=== PATIENT | female | born 1960 | race Caucasian/White ===

== ENCOUNTER 2020-05-24 03:17 | Inpatient (IN) | payer BC ==
[2020-05-24] MEDS ORDERED: diphenhydrAMINE 50 MG/ML SDV IVPUSH PRN (03:40)
[2020-05-24] MEDS: HYDROmorphone 1 MG/ML Syringe IVPUSH PRN ×4 (04:36→21:40)
[2020-05-24] MEDS: Ondansetron 4 MG/2 ML SDV IVPUSH PRN ×2 (04:37→08:05)
[2020-05-24] MEDS: Piperacillin/Tazobactam 3.375 GM in Sodium Chloride 0.9% 50 ML IV SCH ×3 (06:36→17:34)
[2020-05-24] MEDS ORDERED: Sugammadex Sodium 200 MG/2 ML VIAL ONE (08:39)
--- NOTE | 2020-05-24 09:12 | PCM.HP.2 ---
H&P History of Present Illness - General Date of Service: 05/24/20 Admit Problem/Dx: Admission Diagnosis/Problem Admission Diagnosis/Problem Appendicitis Source of Information: Patient History Limitations: Reports: No Limitations - History of Present Illness Initial Comments - Free Text/Narative: Patient is a 59 year old female who presents with appendicitis. She developed m alaise and generalized abdominal pain 2 days ago. She drove from [place] up to [place] and by the time she arrived here the pain was located in her RLQ. She has not had a BM for 2 days. She has never had a colonoscopy. She denies any family history of autoimmune disease or IBD. She presented to an OSH. She was found to have a elevated WBC at 13K with a left shift. She had a CT scan that showed thickened small bowel in the LLQ concerning for enteritis or an ileus as well as a 1.5 cm dilated inflamed appendix consistent with appendicitis. She was given IVF and IV zosyn then transfered here. - Related Data Allergies/Adverse Reactions: Allergies Allergy/AdvReac Type Severity Reaction Status Date / Time No Known Allergies Allergy Verified 05/24/20 04:25 Home Medications: Home Meds Lisinopril/Hydrochlorothiazide [Lisinopril-Hctz 20-12.5 mg Tab] 1 each PO 05/24/20 [History] Past Medical History Cardiovascular History: Reports: Hypertension Respiratory History: Reports: Other (See Below) (Long time smoker (40+ years)) QI SPECIALIST History: Reports: - Infectious Disease History Infectious Disease History: Reports: Chicken Pox, Measles - Past Surgical History Cardiovascular Surgical History: Reports: None GI Surgical History: Reports: None Female Surgical History: Reports: Section Social & Family History - Family History Family Medical History: Noncontributory - Tobacco Use Smoking Status *Q: Current Every Day Smoker Years of Tobacco use: 40 Packs/Tins Daily: 0 Second Hand Smoke Exposure: No - Caffeine Use Caffeine Use: Reports: Energy Drinks, Tea - Alcohol Use Days Per Week of Alcohol Use: 7 Number of Drinks Per Day: 1 Total Drinks Per Week: 7 Date of Last Drink: 05/22/20 - Recreational Drug Use Recreational Drug Use: No H&P Review of Systems - Review of Systems: Review Of Systems: Comprehensive ROS is negative, except as noted in HPI. Exam - Exam Exam: See Below - Vital Signs Weight: 62.596 kg - Exam General: Alert, Oriented, Cooperative HEENT: Conjunctiva Clear, Mucosa Moist & [place], Posterior Pharynx Clear Lungs: Clear to Auscultation, Normal Respiratory Effort, Decreased Breath Sounds (to bases bilaterally ) Cardiovascular: Regular Rate, Regular Rhythm GI/Abdominal Exam: Soft, No Distention, Guarding (RLQ), Rebound (RLQ), Tender (RLQ) Extremities: Normal Inspection Sepsis Event Note - Evaluation Sepsis Screening Result: Sepsis Risk - Problem List (1) Appendicitis SNOMED Code(s): 25504104 ICD Code: K37 - UNSPECIFIED APPENDICITIS Status: Acute Current Visit: Yes Problem List Initiated/Reviewed/Updated: Yes Orders Last 24hrs: Active Orders 24 hr Category Date Time Status Admission Status [Patient Status] [ADT] Routine ADT 05/24/20 03:25 Active Activity as Tolerated [RC] .Routine Care 05/24/20 03:44 Active Communication Order [RC] STAT Care 05/24/20 03:44 Active Vital Signs [RC] Q4H Care 05/24/20 03:44 Active Nothing Per Oral Diet [DIET] Diet 05/24/20 Breakfast Active CORONAVIRUS COVID-19 PCR PHL Routine Lab 05/24/20 08:30 Ordered HYDROmorphone [Dilaudid] Med 05/24/20 03:38 Active 0.5 mg IVPUSH Q1H PRN Lactated Ringers [Ringers, Lactated] 1,000 ml Med 05/24/20 03:45 Active IV ASDIRECTED Ondansetron [Zofran] Med 05/24/20 03:40 Active 4 mg IVPUSH Q4H PRN Piperacillin/Tazobactam [Piperacil-Tazobact] 3.375 gm Med 05/24/20 06:00 Active Sodium Chloride 0.9% [Normal Saline] 50 ml IV Q6H diphenhydrAMINE [Benadryl] Med 05/24/20 03:40 Active 50 mg IVPUSH Q4H PRN Code Status [Resuscitation Status] Routine Resus Stat 05/24/20 03:36 Ordered Medication Orders Diphenhydramine HCl (Benadryl) 50 mg IVPUSH Q4H PRN PRN Reason: Itching Hydromorphone HCl (Dilaudid) 0.5 mg IVPUSH Q1H PRN PRN Reason: Pain Last Admin: 05/24/20 08:04 Dose: 0.5 mg Documented by: Admin: 05/24/20 04:36 Dose: 0.5 mg Documented by: PAULO Lactated Ringer's (Ringers, Lactated) 1,000 mls @ 125 mls/hr IV ASDIRECTED DEA Piperacillin Sod/Tazobactam (Sod 3.375 gm/ Sodium Chloride) 50 mls @ 100 mls/hr IV Q6H DEA Stop: 05/26/20 06:00 Last Admin: 05/24/20 06:36 Dose: 100 mls/hr Documented by: PAULO Ondansetron HCl (Zofran) 4 mg IVPUSH Q4H PRN PRN Reason: Nausea Last Admin: 05/24/20 08:05 Dose: 4 mg Documented by: Admin: 05/24/20 04:37 Dose: 4 mg Documented by: PAULO Assessment/Plan Comment:: I was unable to review her CT findings since the images were not send with her and we are unable at this time to send or receive images due to technical issues. Her physical exam is consistent with appendicitis. She does not appear distended and has not been vomiting so at this time there is no evidence of an ileus or SBO. However the inflammation from her acute appendicitis could be causing this to begin. We discussed the pathophysiology of acute appendicitis. I explained the need for an appendectomy. I will attempt this laparoscopically but should I be unable to perform it safely I will convert to open. We discussed the risks including bleeding, infection or damage to surrounding structures. She verbalized understanding and wishes to proceed.
--- NOTE | 2020-05-24 09:13 | PCM.PREANE ---
Preanesthetic Assessment - Anesthesia/Transfusion/Family Hx Family History of Anesthesia Reaction: No - Review of Systems General: No Symptoms Pulmonary: No Symptoms Cardiovascular: No Symptoms Gastrointestinal: Abdominal Pain Neurological: No Symptoms Other: Reports: None - Physical Assessment NPO Status Date: 05/23/20 Height: 5 ft 5 in Weight: 62.596 kg ASA Class: 2 Mental Status: Alert & Oriented x3 Airway Class: Mallampati = 1 Dentition: Reports: Normal Dentition ROM/Head Extension: Full Lungs: Clear to Auscultation, Normal Respiratory Effort Cardiovascular: Regular Rate, Regular Rhythm - Allergies Allergies/Adverse Reactions: Allergies Allergy/AdvReac Type Severity Reaction Status Date / Time No Known Allergies Allergy Verified 05/24/20 04:25 - Blood Blood Available: No - Anesthesia Plan Pre-Op Medication Ordered: None - Acknowledgements Anesthesia Type Planned: General Anesthesia Pt an Appropriate Candidate for the Planned Anesthesia: Yes Alternatives and Risks of Anesthesia Discussed w Pt/Guardian: Yes Pt/Guardian Understands and Agrees with Anesthesia Plan: Yes Additional Comments: PMH: htn, on hctz PLAN: get PreAnesthesia Questionnaire Cardiovascular History: Reports: Hypertension [employer] History: Reports: - Infectious Disease History Infectious Disease History: Reports: Chicken Pox, Measles - Past Surgical History Cardiovascular Surgical History: Reports: None GI Surgical History: Reports: None - SUBSTANCE USE Smoking Status *Q: Current Every Day Smoker Tobacco Use Within Last Twelve Months: Cigarettes Second Hand Smoke Exposure: No Days Per Week of Alcohol Use: 7 Number of Drinks Per Day: 1 Total Drinks Per Week: 7 Date of Last Drink: 05/22/20 Recreational Drug Use History: No - CURRENT (IN HOUSE) MEDS Current Meds: Current Medications Diphenhydramine HCl (Benadryl) 50 mg IVPUSH Q4H PRN PRN Reason: Itching Hydromorphone HCl (Dilaudid) 0.5 mg IVPUSH Q1H PRN PRN Reason: Pain Last Admin: 05/24/20 08:04 Dose: 0.5 mg Documented by: Lactated Ringer's (Ringers, Lactated) 1,000 mls @ 125 mls/hr IV ASDIRECTED DEA Piperacillin Sod/Tazobactam (Sod 3.375 gm/ Sodium Chloride) 50 mls @ 100 mls/hr IV Q6H DEA Stop: 05/26/20 06:00 Last Admin: 05/24/20 06:36 Dose: 100 mls/hr Documented by: Ondansetron HCl (Zofran) 4 mg IVPUSH Q4H PRN PRN Reason: Nausea Last Admin: 05/24/20 08:05 Dose: 4 mg Documented by: Discontinued Medications Sugammadex Sodium ([place]rid[place]) Confirm Administered Dose 200 mg .ROUTE .[facility] Stop: 05/24/20 08:40
[2020-05-24] MEDS ORDERED: ceFAZolin 1 GM Vial ONE ×2 (11:25→16:14)
[2020-05-24] MEDS ORDERED: Propofol 200 MG/20 ML SDV ONE (11:27)
[2020-05-24] MEDS ORDERED: HYDROmorphone 2 MG/ML Syringe ONE (11:27)
[2020-05-24] MEDS ORDERED: fentaNYL 100 MCG/2 ML SDV ONE ×2 (11:27→15:47)
[2020-05-24] MEDS ORDERED: Midazolam 1 MG/ML 2 ML SDV ONE (11:27)
[2020-05-24] MEDS ORDERED: Rocuronium Bromide 50 MG/5 ML Syringe ONE ×2 (11:27→16:35)
[2020-05-24] MEDS ORDERED: Ondansetron 4 MG/2 ML SDV ONE (11:27)
[2020-05-24] MEDS ORDERED: Lidocaine 2% 5 ML SDV ONE (11:29)
[2020-05-24] MEDS ORDERED: Sodium Chloride 0.9% 20 ML ONE (11:30)
[2020-05-24] MEDS: Lactated Ringers 1,000 ML IV SCH (13:35)
[2020-05-24] MEDS ORDERED: Bupivacaine 0.5% 30 ML SDV ONE (14:41)
[2020-05-24] MEDS ORDERED: cefOXitin 2 GM in Sodium Chloride 0.9% 50 ML IV ONE (16:34)
[2020-05-24] MEDS ORDERED: cefOXitin 2 GM in Premix Bag 1 BAG IV ONE (16:45)
[2020-05-24] MEDS ORDERED: HYDROmorphone 2 MG/ML Syringe IVPUSH PRN (17:18)
[2020-05-24] MEDS ORDERED: Sodium Chloride 0.9% 2.5 ML Syringe FLUSH PRN (17:18)
[2020-05-24] MEDS ORDERED: Sodium Chloride 0.9% 10 ML Syringe FLUSH PRN (17:18)
[2020-05-24] MEDS ORDERED: Sodium Chloride 0.9% 10 ML SDV IV PRN (17:18)
[2020-05-24] MEDS ORDERED: Metoprolol Tartrate 5 MG/5 ML SDV IVPUSH PRN (17:23)
[2020-05-24] MEDS ORDERED: Acetaminophen 650 MG Supp RECTAL PRN (17:26)
--- NOTE | 2020-05-24 17:26 | PCM.OPNOTE ---
- General Post-Op/Procedure Note Date of Surgery/Procedure: 05/24/20 Operative Procedure(s): Laparoscopic converted to open appendectomy Findings: Perforated appendicitis with appendix encased in small intestine and adhered to abdominal wall. Purulent material in pelvis, above liver and along kaleb-colic gutter on the right. Intestinal adhesions along the mid ascending colon Pre Op Diagnosis: Appendicitis Post-Op Diagnosis: Perforated appendicitis with generalized peritonitis and abscess Anesthesia Technique: General ET Tube Primary Surgeon: Linda Hernandez Secondary Surgeon: Victor Hugo Ramsay Fluid Replacement, Intraop: 1,100 Output, Urine Amount: 110 EBL in mLs: 100 Surgical Drain/Tube Type: Jose Drain Condition: Good Free Text/Narrative:: Intake & Output 05/24/20 05/24/20 05/24/20 06:59 14:59 22:59 Intake Total 0 Balance 0
--- NOTE | 2020-05-24 17:39 | PCM.POSTAN ---
POST ANESTHESIA ASSESSMENT - MENTAL STATUS Mental Status: Alert, Oriented - VITAL SIGNS Vital Signs: Last Vital Signs Temp 36.6 C 05/24/20 17:14 Pulse 99 05/24/20 17:28 Resp 10 L 05/24/20 17:28 BP 128/79 05/24/20 17:28 Pulse Ox 95 05/24/20 17:28 - RESPIRATORY Respiratory Status: Respiratory Rate WNL (RR 8 to 9 when sleeping, arouses easily to soft voice, RR 10-12 when awake. SAT 94-96% on 3LNC), Airway Patent, O2 Saturation Stable - CARDIOVASCULAR CV Status: Pulse Rate WNL, Blood Pressure Stable - GASTROINTESTINAL GI Status: No Symptoms - PAIN Pain Score: 0 (Denies pain) - POST OP HYDRATION Hydration Status: Adequate & Stable
--- NOTE | 2020-05-24 18:00 | PCM48HPAN ---
Post Anesthesia Note - EVALUATION WITHIN 48HRS OF ANESTHETIC Vital Signs in Normal Range: Yes Patient Participated in Evaluation: Yes Respiratory Function Stable: Yes Airway Patent: Yes Cardiovascular Function Stable: Yes Hydration Status Stable: Yes Pain Control Satisfactory: Yes (Denies pain) Nausea and Vomiting Control Satisfactory: Yes (Denies nausea) Mental Status Recovered: Yes Vital Signs: Last Vital Signs Temp 36.6 C 05/24/20 17:14 Pulse 95 05/24/20 17:53 Resp 12 05/24/20 17:53 BP 135/45 L 05/24/20 17:53 Pulse Ox 94 L 05/24/20 17:53 - COMMENTS/OBSERVATIONS Free Text/Narrative:: VSS. SAT 95% on 3LNC
[2020-05-24] MEDS ORDERED: Ketorolac 30 MG/ML SDV ONE (18:12)
[2020-05-24] MEDS: Ketorolac 15 MG/ML SDV IVPUSH SCH (18:15)
--- NOTE | 2020-05-24 19:41 | OR ---
SURGEON: GAB LIANG MD DATE OF PROCEDURE: 05/24/2020 PREOPERATIVE DIAGNOSIS: Acute appendicitis. POSTOPERATIVE DIAGNOSIS: Perforated appendicitis with generalized peritonitis and associated abscess. PROCEDURE PERFORMED: Laparoscopic, converted to open appendectomy. SECONDARY SURGEON: Victor Hugo Ramsay M.D. ANESTHESIA: General endotracheal anesthesia. FLUIDS: 1100 mL of crystalloid. ESTIMATED BLOOD LOSS: 100 mL. URINE OUTPUT: 110 mL. FINDINGS: Perforated appendicitis with appendix encased in the small intestine and adhered to the abdominal wall. Purulent material in the pelvis above the liver along the diaphragm and along the right pericolic gutter. Intestinal adhesions along the mid ascending colon. COMPLICATIONS: None. INDICATIONS: The patient is a 59-year-old female who developed abdominal pain 2 to 3 days ago. Her and her were traveling from [place] to [place]. Upon arriving in [place], the pain became centered along the right lower quadrant. The patient presented last evening to an outside hospital. Workup revealed a mild leukocytosis with a left shift. CT scan of the abdomen showed an enlarged and distended appendix with evidence of inflamed-appearing small bowel in the left lower quadrant. The patient was transferred here. She was kept n.p.o., given IV fluids and started on IV antibiotics. I explained to the patient the need for an appendectomy. I told her I would attempt the laparoscopic approach but should I be unable to complete it safely, I will convert to open. I explained both procedures in detail including the expected perioperative course as well as her risks including bleeding, infection, or damage to surrounding structures. She verbalized understanding and wishes to proceed. PROCEDURE IN DETAIL: The patient was brought into the OR and placed on the OR table in supine position. A time-out was completed verifying the patient's name, age, date of , allergies, and procedure to be performed. General endotracheal anesthesia was induced. The left arm was tucked to the patient's side and a Nagy catheter was placed. The abdomen was prepped and draped in the usual standard fashion. I anesthetized an area 2 fingerbreadths below the left subcostal margin in the midclavicular line with 0.5% Marcaine plain. A 1 cm incision was made using an 11 blade. A 5 mm optical trocar was used to gain entry into the left upper quadrant under direct visualization. All layers of the abdominal wall were visualized upon entry. The abdomen was insufflated and a 5 mm, 30 degree scope was inserted into the abdomen. I inspected the area underneath my initial trocar placement. No damage to surrounding structures was noted. A 5 mm trocar was placed just left and lateral to the umbilicus. I turned my attention to the lower abdomen. The patient had some of her small bowel adhered up along the midline. The patient has a history of a previous midline . I thought that this was intestinal adhesion from her previous surgery. I turned my attention to the lateral left lower quadrant abdominal wall. There was a section which did not appear to be involved in this process. I anesthetized this area with 0.5 % marcaine and a 12 mm trocar was placed under direct visualization in that area. I turned my attention to the right side of the abdomen. The patient was noted to have cloudy purulent- appearing fluid up along the liver edge and down along the right pericolic gutter. I noticed some adhesions along the right pericolic gutter. I started sweeping these down in order to identify the cecum. As I was doing this, however, my anatomy did not seem correct. I appeared to be closer to the hepatic flexure than the cecum. I stopped my dissection. Instead, I turned my attention back to the small bowel. I began to run it using two atraumatic graspers. The distal small bowel came up to the abdominal wall. I decided to attempt to sweep the small intestine down from the abdominal wall. I swept down a loop of small bowel and immediately encountered fibrinous exudate and purulent material concerning instead for ruptured appendicitis. I realized that the adhesions around her small bowel and abdominal wall were from the body encasing her infected ruptured appendix. Using gentle blunt dissection, I took down the fibrinous rind of tissue around the small intestines and encountered more pockets of purulent material. Eventually, I identified the tip of an inflamed appendix. I swept this away from the surrounding small intestines. I was able to identify the body of the appendix. The midpoint of the appendix appeared necrotic and perforated. There was no feculent material within the area. I turned my attention back to the right lower quadrant. I could see the cecum coming across towards the midline up toward the appendix. I was able to see purulent material within the pelvis as well. Given the degree of inflammation, adhesions, and purulent material, the decision was made to instead convert to an open procedure in order to better washout the abdomen and take down any adhesions safely. The port in the left lower quadrant was removed and I closed the fascia at the site using an interrupted 0 Vicryl suture with a Garrett-Fatoumata device. The abdomen was kept insufflated. I anesthetized the patient's previous lower midline scar with oh 0.5% Marcaine plain. A #15 blade was used to make an incision along the previous scar. Cautery was used to dissect down to the level of the fascia. The fascia was elevated with Kari's and incised sharply with the Metzenbaum scissors. The peritoneum was identified. This was elevated with hemostats and opened sharply. The incision was then carried inferiorly and superiorly with electrocautery. The 5 mm trocars were then removed. upon entering the abdomen, cloudy fluid was expressed. This was suctioned out. Using blunt dissection, I took down the fibrinous exudate and adhesions along the small intestines and reidentified the tip of the appendix. This was grasped with a Shanel. I then followed the body of the appendix down to where the base of the appendix inserted upon the cecum. This appeared healthy and uninvolved in the infectious process. A Harmonic Scalpel was used to take down the appendiceal mesentery from distal to proximal. Once the base of the appendix had been cleared away from all surrounding tissues, an endoscopic stapling device was brought into the field and I stapled and transected across the base of the appendix with a [address] Victor Hugo Ramsay was called into the case to assist me. The appendix was passed off the field and sent to pathology. I then ran the small bowel from the terminal ileum to more proximally. The distal small bowel appeared injected, but there was no evidence of dilation or severe inflammation. I placed my hand into the pelvis and broke up any loculations that were there. We then irrigated the abdomen with 2 L of normal saline mixed with Ancef. She was then washed out with one more liter of saline which was mixed with 2 g of Mefoxin. All of the fluid was then suctioned out. A #15 blade was used to make an incision in the right lower quadrant. I then placed a 19-Uzbek Jose drain through this incision into the abdomen. The tip of the drain was placed along the right pericolic gutter and brought down along the cecum. It was sutured in place on the skin using a 2-0 silk suture. We then closed the fascia with a running 1-0 PDS suture. The skin was then closed loosely with skin steven. 1 inch packing strip was placed between these steven and 4 x 4 dressings were placed on top. The skin at the port sites was closed with steven. Tegaderms were applied over these wounds. The patient tolerated the procedure well and was then extubated and transferred to PACU in stable condition. All counts were complete and correct at the end of the case. JOLEEN / MIGUELITO /[id number] STACEY
[2020-05-25] MEDS: Lactated Ringers 1,000 ML IV SCH
[2020-05-25] MEDS: Piperacillin/Tazobactam 3.375 GM in Sodium Chloride 0.9% 50 ML IV SCH ×4 (00:24→19:01)
[2020-05-25] MEDS: Ketorolac 15 MG/ML SDV IVPUSH SCH ×3 (00:29→12:00)
[2020-05-25] MEDS: HYDROmorphone 1 MG/ML Syringe IVPUSH PRN ×2 (03:47→08:10)
[2020-05-25] MEDS: Ondansetron 4 MG/2 ML SDV IVPUSH PRN ×3 (03:53→19:45)
[2020-05-25] MEDS ORDERED: Acetaminophen 650 MG in Premix Bag 1 BAG IV PRN (06:17)
[2020-05-25 06:19] LABS: BLOOD UREA NITROGEN,BUN 15 mg/dL (7.0-18.0); CARBON DIOXIDE,CO2 25.5 mmol/L (21.0-32.0); CHLORIDE,CL 103 mmol/L (98-107); GLUCOSE RANDOM 116 mg/dL (74-106); POTASSIUM,K 3.6 mmol/L (3.5-5.1); SODIUM,NA 138 mmol/L (136-145)
--- NOTE | 2020-05-25 07:39 | PCM48HPAN ---
Post Anesthesia Note - EVALUATION WITHIN 48HRS OF ANESTHETIC Vital Signs in Normal Range: Yes Patient Participated in Evaluation: Yes Respiratory Function Stable: Yes Airway Patent: Yes Cardiovascular Function Stable: Yes Hydration Status Stable: Yes Pain Control Satisfactory: Yes Nausea and Vomiting Control Satisfactory: Yes (Pain overnight minimal to none, 03/04 when meds are due.) Mental Status Recovered: Yes Vital Signs: Last Vital Signs Temp 36.4 C 05/25/20 04:00 Pulse 79 05/25/20 04:00 Resp 16 05/25/20 04:00 BP 138/65 05/25/20 04:00 Pulse Ox 97 05/25/20 04:00
--- NOTE | 2020-05-25 09:28 | PCM.SURGPN ---
- General Info Date of Service: 05/25/20 Date of Surgery/Procedure: 05/24/20 POD#: 0 - Review of Systems General: Reports: No Symptoms HEENT: Reports: Sore Throat Pulmonary: Reports: No Symptoms Cardiovascular: Reports: No Symptoms Gastrointestinal: Reports: Abdominal Pain (LLQ abdominal pain ) Genitourinary: Reports: No Symptoms Musculoskeletal: Reports: No Symptoms Skin: Reports: No Symptoms - Patient Data Vitals - Most Recent: Last Vital Signs Temp 36.4 C 05/25/20 04:00 Pulse 79 05/25/20 04:00 Resp 16 05/25/20 04:00 BP 138/65 05/25/20 04:00 Pulse Ox 97 05/25/20 04:00 Weight - Most Recent: 62.596 kg I&O - Last 24 Hours: Intake & Output 05/24/20 05/25/20 05/25/20 22:59 06:59 14:59 Intake Total 2300 30 Output Total 430 500 Balance 1870 -470 Lab Results Last 24 Hrs: Laboratory Results - last 24 hr 05/25/20 05/25/20 Range/Units 05:45 05:45 WBC 15.15 H (4.0-11.0) K/uL RBC 3.77 L (4.30-5.90) M/uL Hgb 12.5 (12.0-16.0) g/dL Hct 38.1 (36.0-46.0) % MCV 101.1 H (80.0-98.0) fL MCH 33.2 H (27.0-32.0) pg MCHC 32.8 (31.0-37.0) g/dL RDW Std Deviation 49.1 (28.0-62.0) fl RDW Coeff of Daniela 13 (11.0-15.0) % Plt Count 193 (150-400) K/uL MPV 10.70 (7.40-12.00) fL Nucleated RBC % 0.0 /100WBC Nucleated RBCs # 0 K/uL Sodium 138 (136-145) mmol/L Potassium 3.6 (3.5-5.1) mmol/L Chloride 103 (98-107) mmol/L Carbon Dioxide 25.5 (21.0-32.0) mmol/L BUN 15 (7.0-18.0) mg/dL Creatinine 0.7 (0.6-1.0) mg/dL Est Cr Clr Drug Dosing 76.90 mL/min Estimated GFR (MDRD) > 60.0 ml/min Glucose 116 H (74-106) mg/dL Calcium 8.5 (8.5-10.1) mg/dL Med Orders - Current: Current Medications Diphenhydramine HCl (Benadryl) 50 mg IVPUSH Q4H PRN PRN Reason: Itching Docusate Sodium (Colace) 100 mg PO BID [facility] Hydromorphone HCl (Dilaudid) 0.5 mg IVPUSH Q1H PRN PRN Reason: Pain (severe 7-10) Last Admin: 05/25/20 08:10 Dose: 0.5 mg Documented by: Lactated Ringer's (Ringers, Lactated) 1,000 mls @ 125 mls/hr IV ASDIRECTED [facility] Last Admin: 05/25/20 00:00 Dose: 125 mls/hr Documented by: Piperacillin Sod/Tazobactam (Sod 3.375 gm/ Sodium Chloride) 50 mls @ 100 mls/hr IV Q6H [facility] Stop: 05/26/20 06:00 Last Admin: 05/25/20 05:51 Dose: 100 mls/hr Documented by: Ketorolac Tromethamine (Toradol) 15 mg IVPUSH Q6H [facility] Stop: 05/25/20 11:31 Last Admin: 05/25/20 05:51 Dose: 15 mg Documented by: Metoprolol Tartrate (Lopressor) 5 mg IVPUSH Q6H PRN PRN Reason: Hypertension Ondansetron HCl (Zofran) 4 mg IVPUSH Q4H PRN PRN Reason: Nausea Last Admin: 05/25/20 08:11 Dose: 4 mg Documented by: Oxycodone/Acetaminophen (Percocet 325-5 Mg) 2 tab PO Q4H PRN PRN Reason: Pain (severe 7-10) Sodium Chloride (Saline Flush) 10 ml FLUSH ASDIRECTED PRN PRN Reason: Keep Vein Open Sodium Chloride (Saline Flush) 2.5 ml FLUSH ASDIRECTED PRN PRN Reason: Keep Vein Open Sodium Chloride (Normal Saline) 10 ml IV ASDIRECTED PRN PRN Reason: IV Use Discontinued Medications Acetaminophen (Tylenol) 650 mg RECTAL Q4H PRN PRN Reason: Fever Bupivacaine HCl (Marcaine 0.5%) Confirm Administered Dose 30 ml .ROUTE .STK-MED ONE Stop: 05/24/20 14:42 Cefazolin Sodium (Ancef) Confirm Administered Dose 2 gm .ROUTE .STK-MED ONE Stop: 05/24/20 11:26 Cefazolin Sodium (Ancef) Confirm Administered Dose 1 gm .ROUTE .STK-MED ONE Stop: 05/24/20 16:15 Fentanyl (Sublimaze) Confirm Administered Dose 100 mcg .ROUTE .STK-MED ONE Stop: 05/24/20 11:28 Fentanyl (Sublimaze) Confirm Administered Dose 100 mcg .ROUTE .STK-MED ONE Stop: 05/24/20 15:48 Hydromorphone HCl (Dilaudid) 0.5 mg IVPUSH Q1H PRN PRN Reason: Pain Last Admin: 05/24/20 11:34 Dose: 0.5 mg Documented by: Hydromorphone HCl (Dilaudid) Confirm Administered Dose 2 mg .ROUTE .STK-MED ONE Stop: 05/24/20 11:28 Hydromorphone HCl (Dilaudid) 0.5 mg IVPUSH Q1H PRN PRN Reason: Pain (severe 7-10) Sodium Chloride (Normal Saline) Confirm Administered Dose 20 mls @ as directed .ROUTE .STK-MED ONE Stop: 05/24/20 11:31 Acetaminophen (Ofirmev) Confirm Administered Dose 100 mls @ as directed .ROUTE .STK-MED ONE Stop: 05/24/20 15:46 Cefoxitin Sodium 2 gm/ Sodium (Chloride) 50 mls @ 100 mls/hr IV ONETIME ONE Stop: 05/24/20 17:03 Last Admin: 05/24/20 19:59 Dose: Not Given Documented by: Cefoxitin Sodium 2 gm/ Premix 50 mls @ 100 mls/hr IV ONETIME ONE Stop: 05/24/20 17:14 Last Admin: 05/24/20 18:47 Dose: Not Given Documented by: Acetaminophen 650 mg/ Premix 65 mls @ 400 mls/hr IV Q4H PRN PRN Reason: Pain Ketorolac Tromethamine (Toradol) Confirm Administered Dose 30 mg .ROUTE .STK-MED ONE Stop: 05/24/20 18:13 Last Admin: 05/24/20 18:46 Dose: Not Given Documented by: Lidocaine (Xylocaine-Mpf 2%) Confirm Administered Dose 5 ml .ROUTE .STK-MED ONE Stop: 05/24/20 11:30 Midazolam HCl (Versed 1 Mg/Ml) Confirm Administered Dose 2 mg .ROUTE .STK-MED ONE Stop: 05/24/20 11:28 Ondansetron HCl (Zofran) Confirm Administered Dose 4 mg .ROUTE .STK-MED ONE Stop: 05/24/20 11:28 Propofol (Diprivan 20 Ml) Confirm Administered Dose 200 mg .ROUTE .STK-MED ONE Stop: 05/24/20 11:28 Rocuronium [place] (Rocuronium [place]) Confirm Administered Dose 50 mg .ROUTE .STK-MED ONE Stop: 05/24/20 11:28 Rocuronium [place] (Rocuronium [place]) Confirm Administered Dose 50 mg .ROUTE .STK-MED ONE Stop: 05/24/20 16:36 Sugammadex Sodium (Bridion) Confirm Administered Dose 200 mg .ROUTE .STK-MED ONE Stop: 05/24/20 08:40 - Exam Wound/Incisions: Healing Well, Dressing Dry and Intact (over port sites), Drainage (slight shadowing of midline incision ), Other (Drain with serosanguinous output ) General: Alert, Oriented, Cooperative Lungs: Normal Respiratory Effort Cardiovascular: Regular Rate GI/Abdominal Exam: Soft, Non-Tender, No Distention. No: Guarding, Rigid, Rebound Extremities: Normal Inspection Skin: Warm, Dry, Intact Sepsis Event Note - Evaluation Sepsis Screening Result: No Definite Risk - Focused Exam Vital Signs: Vital Signs Temp Pulse Resp BP Pulse Ox 05/25/20 04:00 36.4 C 79 16 138/65 97 05/25/20 00:20 35.9 C L 84 15 137/63 98 05/24/20 22:30 93 16 120/61 98 05/24/20 21:30 78 16 131/64 97 - Problem List & Annotations (1) Appendicitis SNOMED Code(s): 98099705 Code(s): K37 - UNSPECIFIED APPENDICITIS Status: Acute Current Visit: Yes - Problem List Review Problem List Initiated/Reviewed/Updated: Yes - My Orders Last 24 Hours: Active Orders 24 hr Category Date Time Status Patient Status [ADT] Routine ADT 05/24/20 17:18 Active Antiembolic Devices [RC] .Routine Care 05/24/20 17:22 Active Communication Order [RC] Q12H Care 05/25/20 06:19 Active Intake and Output Strict [RC] ASDIRECTED Care 05/24/20 17:27 Active NG [Gastrointestinal Tube Mgmt] [RC] ASDIRECTED Care 05/24/20 19:50 Active Notify Provider Vital Signs [RC] PRN Care 05/24/20 17:19 Active Oxygen Therapy [RC] PRN Care 05/24/20 17:18 Active RT Incentive Spirometry [RC] Q1HWA Care 05/24/20 17:18 Active Remove Nagy Catheter [Urinary Catheter Removal] [RC] Care 05/25/20 08:23 Active PER UNIT ROUTINE Up ad Natalya [RC] ASDIRECTED Care 05/24/20 17:18 Active Urinary Catheter Assessment [RC] ASDIRECTED Care 05/24/20 17:18 Active VTE/DVT Education [RC] PER UNIT ROUTINE Care 05/24/20 17:22 Active Vital Signs [RC] PER UNIT ROUTINE Care 05/24/20 17:18 Active Wound Care [RC] DAILY Care 05/24/20 17:18 Active Clear Liquid Diet [DIET] Diet 05/25/20 Lunch Active CORONAVIRUS COVID-19 PCR PHL Routine Lab 05/24/20 08:30 Ordered Acetaminophen/oxyCODONE [Percocet 325-5 MG] Med 05/25/20 08:23 Active 2 tab PO Q4H PRN Docusate Sodium [Colace] Med 05/25/20 09:00 Active 100 mg PO BID HYDROmorphone [Dilaudid] Med 05/24/20 17:26 Active 0.5 mg IVPUSH Q1H PRN Ketorolac [Toradol] Med 05/24/20 17:30 Active 15 mg IVPUSH Q6H Metoprolol Tartrate [Lopressor] Med 05/24/20 17:23 Active 5 mg IVPUSH Q6H PRN Sodium Chloride 0.9% [Normal Saline] Med 05/24/20 17:18 Active 10 ml IV ASDIRECTED PRN Sodium Chloride 0.9% [Saline Flush] Med 05/24/20 17:18 Active 10 ml FLUSH ASDIRECTED PRN Sodium Chloride 0.9% [Saline Flush] Med 05/24/20 17:18 Active 2.5 ml FLUSH ASDIRECTED PRN Abdominal Binder [OM.PC] Per Unit Routine Oth 05/24/20 17:19 Ordered DVT/VTE Prophylaxis Reflex [OM.PC] Routine Ot 05/24/20 17:18 Ordered Peripheral IV Insertion Adult [OM.PC] Urgent Oth 05/24/20 17:18 Ordered Medication Orders Diphenhydramine HCl (Benadryl) 50 mg IVPUSH Q4H PRN PRN Reason: Itching Docusate Sodium (Colace) 100 mg PO BID [facility] Hydromorphone HCl (Dilaudid) 0.5 mg IVPUSH Q1H PRN PRN Reason: Pain (severe 7-10) Last Admin: 05/25/20 08:10 Dose: 0.5 mg Documented by: Admin: 05/25/20 03:47 Dose: 0.5 mg Documented by: Admin: 05/24/20 21:40 Dose: 0.5 mg Documented by: LUC Lactated Ringer's (Ringers, Lactated) 1,000 mls @ 125 mls/hr IV ASDIRECTED [facility] Last Admin: 05/25/20 00:00 Dose: 125 mls/hr Documented by: Infusion: 05/24/20 21:35 Dose: 125 mls/hr Documented by: Admin: 05/24/20 13:35 Dose: 125 mls/hr Documented by: ZACH Piperacillin Sod/Tazobactam (Sod 3.375 gm/ Sodium Chloride) 50 mls @ 100 mls/hr IV Q6H [facility] Stop: 05/26/20 06:00 Last Admin: 05/25/20 05:51 Dose: 100 mls/hr Documented by: Infusion: 05/25/20 00:54 Dose: 100 mls/hr Documented by: Admin: 05/25/20 00:24 Dose: 100 mls/hr Documented by: Infusion: 05/24/20 18:04 Dose: 100 mls/hr Documented by: Admin: 05/24/20 17:34 Dose: 100 mls/hr Documented by: Infusion: 05/24/20 12:04 Dose: 100 mls/hr Documented by: Admin: 05/24/20 11:34 Dose: 100 mls/hr Documented by: Infusion: 05/24/20 07:06 Dose: 100 mls/hr Documented by: Admin: 05/24/20 06:36 Dose: 100 mls/hr Documented by: PAULO Ketorolac Tromethamine (Toradol) 15 mg IVPUSH Q6H [facility] Stop: 05/25/20 11:31 Last Admin: 05/25/20 05:51 Dose: 15 mg Documented by: Admin: 05/25/20 00:29 Dose: 15 mg Documented by: Admin: 05/24/20 18:15 Dose: 15 mg Documented by: JULIUS Metoprolol Tartrate (Lopressor) 5 mg IVPUSH Q6H PRN PRN Reason: Hypertension Ondansetron HCl (Zofran) 4 mg IVPUSH Q4H PRN PRN Reason: Nausea Last Admin: 05/25/20 08:11 Dose: 4 mg Documented by: Admin: 05/25/20 03:53 Dose: 4 mg Documented by: Admin: 05/24/20 08:05 Dose: 4 mg Documented by: Admin: 05/24/20 04:37 Dose: 4 mg Documented by: PAULO Oxycodone/Acetaminophen (Percocet 325-5 Mg) 2 tab PO Q4H PRN PRN Reason: Pain (severe 7-10) Sodium Chloride (Saline Flush) 10 ml FLUSH ASDIRECTED PRN PRN Reason: Keep Vein Open Sodium Chloride (Saline Flush) 2.5 ml FLUSH ASDIRECTED PRN PRN Reason: Keep Vein Open Sodium Chloride (Normal Saline) 10 ml IV ASDIRECTED PRN PRN Reason: IV Use - Assessment Assessment (Free Text/Narrative):: Perforated appendicitis with abscess and generalized peritonitis - Plan Plan (Free Text/Narrative):: Patient's pain controlled well overnight. VSS. WBC elevated this am at 15K which is to be expected. Minimal NG output and minimal drain output. UOP on the low side but it appears clear and her BUN and Cr are within normal limits. No flatus yet. Does not appear distended on exam. Pain: IV dilaudid for severe pain. Percocet 2 tab prn moderate pain q 4hr. IV Toradol 15mg q 6hr. Will switch to scheduled ibuprofen once completed. CV/Pulm: Stable. Encourage IS use and out of bed activity today. Will restart patient's home medication for BP. GI: NG to be removed. Clear liquids. Continue IVF for now. Multivitamin daily. Docusate daily for bowel regiment. Renal: Continue IVF and monitoring UOP. ID: Continue IV zosyn until patient's WBC is within normal range. Heme: Stable. Px: No history of GERD or gastritis. No need for GI px at this time with advancing diet. Will start heparin daily for DVT px. SCDs
[2020-05-25] MEDS: Docusate Sodium 100 MG Cap PO SCH ×2 (10:18→21:32)
[2020-05-25] MEDS: Multivitamin Tab PO SCH (10:18)
[2020-05-25] MEDS: Heparin Sodium 5,000 Units/ML Vial SUBCUT SCH ×2 (10:19→21:33)
[2020-05-25] MEDS: Lisinopril/Hydrochlorothiazide 10-12.5 MG Tab PO SCH (10:27)
[2020-05-25] MEDS: Acetaminophen/oxyCODONE 325-5 MG Tab PO PRN ×2 (14:14→19:37)
[2020-05-25] MEDS ORDERED: Ibuprofen 400 MG Tab PO PRN (20:23)
[2020-05-26] MEDS: Piperacillin/Tazobactam 3.375 GM in Sodium Chloride 0.9% 50 ML IV SCH ×2 (00:31→06:27)
[2020-05-26] MEDS: Ondansetron 4 MG/2 ML SDV IVPUSH PRN ×4 (03:41→21:03)
[2020-05-26 06:17] LABS: BLOOD UREA NITROGEN,BUN 11 mg/dL (7.0-18.0); CARBON DIOXIDE,CO2 26.3 mmol/L (21.0-32.0); CHLORIDE,CL 100 mmol/L (98-107); GLUCOSE RANDOM 101 mg/dL (74-106); SODIUM,NA 137 mmol/L (136-145)
[2020-05-26] MEDS: Lactated Ringers 1,000 ML IV SCH (08:22)
[2020-05-26] MEDS: HYDROmorphone 1 MG/ML Syringe IVPUSH PRN ×3 (08:41→21:10)
[2020-05-26] MEDS ORDERED: Potassium Chloride 20 MEQ Tab.ER PO ONE (08:49)
[2020-05-26] MEDS ORDERED: Phosphorus #1 250 MG Tab PO ONE (09:54)
[2020-05-26] MEDS ORDERED: Magnesium Sulfate/Water 4 GM in Premix Bag 1 BAG IV ONE (09:54)
[2020-05-26] MEDS: Docusate Sodium 100 MG Cap PO SCH ×2 (10:06→21:03)
[2020-05-26] MEDS: Multivitamin Tab PO SCH (10:06)
[2020-05-26] MEDS: Lisinopril/Hydrochlorothiazide 10-12.5 MG Tab PO SCH (10:07)
[2020-05-26] MEDS: Heparin Sodium 5,000 Units/ML Vial SUBCUT SCH ×2 (10:07→21:15)
--- NOTE | 2020-05-26 10:31 | PCM.SURGPN ---
- General Info Date of Service: 05/26/20 Date of Surgery/Procedure: 05/24/20 POD#: 2 - Review of Systems HEENT: Reports: Headaches Pulmonary: Reports: No Symptoms Cardiovascular: Reports: No Symptoms Gastrointestinal: Reports: Constipation, Nausea. Denies: Abdominal Pain, Flatus, Vomiting Genitourinary: Reports: No Symptoms Musculoskeletal: Reports: No Symptoms Skin: Reports: No Symptoms Neurological: Reports: No Symptoms - Patient Data Vitals - Most Recent: Last Vital Signs Temp 36.2 C 05/26/20 07:00 Pulse 87 05/26/20 07:03 Resp 18 05/26/20 07:00 BP 141/74 H 05/26/20 07:00 Pulse Ox 93 L 05/26/20 07:03 Weight - Most Recent: 62.596 kg I&O - Last 24 Hours: Intake & Output 05/25/20 05/26/20 05/26/20 22:59 06:59 14:59 Intake Total 490 2500 Output Total 700 860 Balance -210 1640 Lab Results Last 24 Hrs: Laboratory Results - last 24 hr 05/26/20 05/26/20 05/26/20 Range/Units 05:15 05:15 05:15 WBC 14.73 H (4.0-11.0) K/uL RBC 3.51 L (4.30-5.90) M/uL Hgb 11.6 L (12.0-16.0) g/dL Hct 35.3 L (36.0-46.0) % MCV 100.6 H (80.0-98.0) fL MCH 33.0 H (27.0-32.0) pg MCHC 32.9 (31.0-37.0) g/dL RDW Std Deviation 48.6 (28.0-62.0) fl RDW Coeff of Daniela 13 (11.0-15.0) % Plt Count 230 (150-400) K/uL MPV 11.30 (7.40-12.00) fL Nucleated RBC % 0.0 /100WBC Nucleated RBCs # 0 K/uL Sodium 137 (136-145) mmol/L Potassium 3.0 L (3.5-5.1) mmol/L Chloride 100 (98-107) mmol/L Carbon Dioxide 26.3 (21.0-32.0) mmol/L BUN 11 (7.0-18.0) mg/dL Creatinine 0.7 (0.6-1.0) mg/dL Est Cr Clr Drug Dosing 76.90 mL/min Estimated GFR (MDRD) > 60.0 ml/min Glucose 101 (74-106) mg/dL Calcium 8.6 (8.5-10.1) mg/dL Phosphorus 2.1 L (2.6-4.7) mg/dL Magnesium 1.7 L (1.8-2.4) mg/dL Med Orders - Current: Current Medications Diphenhydramine HCl (Benadryl) 50 mg IVPUSH Q4H PRN PRN Reason: Itching Docusate Sodium (Colace) 100 mg PO BID [facility] Last Admin: 05/26/20 10:06 Dose: 100 mg Documented by: Lisinopril/HCTZ (Lisinopril-Hctz 10-12.5 Mg) 1 tab PO DAILY [facility] Last Admin: 05/26/20 10:07 Dose: 1 tab Documented by: Heparin Sodium (Porcine) (Heparin Sodium) 5,000 units SUBCUT Q12H [facility] Last Admin: 05/26/20 10:07 Dose: 5,000 units Documented by: Hydromorphone HCl (Dilaudid) 0.5 mg IVPUSH Q1H PRN PRN Reason: Pain (severe 7-10) Last Admin: 05/26/20 08:41 Dose: 0.5 mg Documented by: Magnesium Sulfate 4 gm/ Premix 100 mls @ 50 mls/hr IV ONETIME ONE Stop: 05/26/20 11:53 Ibuprofen (Motrin) 400 mg PO Q4H PRN PRN Reason: Pain Last Admin: 05/26/20 03:45 Dose: 400 mg Documented by: Metoprolol Tartrate (Lopressor) 5 mg IVPUSH Q6H PRN PRN Reason: Hypertension Multivitamins/Minerals/Vitamin C (Tab-A-Naya) 1 tab PO DAILY [facility] Last Admin: 05/26/20 10:06 Dose: 1 tab Documented by: Ondansetron HCl (Zofran) 4 mg IVPUSH Q4H PRN PRN Reason: Nausea Last Admin: 05/26/20 08:45 Dose: 4 mg Documented by: Oxycodone/Acetaminophen (Percocet 325-5 Mg) 2 tab PO Q4H PRN PRN Reason: Pain (severe 7-10) Last Admin: 05/25/20 19:37 Dose: 2 tab Documented by: Sodium Chloride (Saline Flush) 10 ml FLUSH ASDIRECTED PRN PRN Reason: Keep Vein Open Sodium Chloride (Saline Flush) 2.5 ml FLUSH ASDIRECTED PRN PRN Reason: Keep Vein Open Sodium Chloride (Normal Saline) 10 ml IV ASDIRECTED PRN PRN Reason: IV Use Discontinued Medications Acetaminophen (Tylenol) 650 mg RECTAL Q4H PRN PRN Reason: Fever Bupivacaine HCl (Marcaine 0.5%) Confirm Administered Dose 30 ml .ROUTE .STK-MED ONE Stop: 05/24/20 14:42 Cefazolin Sodium (Ancef) Confirm Administered Dose 2 gm .ROUTE .STK-MED ONE Stop: 05/24/20 11:26 Cefazolin Sodium (Ancef) Confirm Administered Dose 1 gm .ROUTE .STK-MED ONE Stop: 05/24/20 16:15 Fentanyl (Sublimaze) Confirm Administered Dose 100 mcg .ROUTE .STK-MED ONE Stop: 05/24/20 11:28 Fentanyl (Sublimaze) Confirm Administered Dose 100 mcg .ROUTE .STK-MED ONE Stop: 05/24/20 15:48 Hydromorphone HCl (Dilaudid) 0.5 mg IVPUSH Q1H PRN PRN Reason: Pain Last Admin: 05/24/20 11:34 Dose: 0.5 mg Documented by: Hydromorphone HCl (Dilaudid) Confirm Administered Dose 2 mg .ROUTE .STK-MED ONE Stop: 05/24/20 11:28 Hydromorphone HCl (Dilaudid) 0.5 mg IVPUSH Q1H PRN PRN Reason: Pain (severe 7-10) Lactated Ringer's (Ringers, Lactated) 1,000 mls @ 125 mls/hr IV ASDIRECTED [facility] Last Admin: 05/26/20 08:22 Dose: 125 mls/hr Documented by: Piperacillin Sod/Tazobactam (Sod 3.375 gm/ Sodium Chloride) 50 mls @ 100 mls/hr IV Q6H [facility] Stop: 05/26/20 06:00 Last Admin: 05/26/20 06:27 Dose: 100 mls/hr Documented by: Sodium Chloride (Normal Saline) Confirm Administered Dose 20 mls @ as directed .ROUTE .STK-MED ONE Stop: 05/24/20 11:31 Acetaminophen (Ofirmev) Confirm Administered Dose 100 mls @ as directed .ROUTE .STK-MED ONE Stop: 05/24/20 15:46 Cefoxitin Sodium 2 gm/ Sodium (Chloride) 50 mls @ 100 mls/hr IV ONETIME ONE Stop: 05/24/20 17:03 Last Admin: 05/24/20 19:59 Dose: Not Given Documented by: Cefoxitin Sodium 2 gm/ Premix 50 mls @ 100 mls/hr IV ONETIME ONE Stop: 05/24/20 17:14 Last Admin: 05/24/20 18:47 Dose: Not Given Documented by: Acetaminophen 650 mg/ Premix 65 mls @ 400 mls/hr IV Q4H PRN PRN Reason: Pain Ketorolac Tromethamine (Toradol) 15 mg IVPUSH Q6H [facility] Stop: 05/25/20 11:31 Last Admin: 05/25/20 12:00 Dose: 15 mg Documented by: Ketorolac Tromethamine (Toradol) Confirm Administered Dose 30 mg .ROUTE .STK-MED ONE Stop: 05/24/20 18:13 Last Admin: 05/24/20 18:46 Dose: Not Given Documented by: Lidocaine (Xylocaine-Mpf 2%) Confirm Administered Dose 5 ml .ROUTE .STK-MED ONE Stop: 05/24/20 11:30 Midazolam HCl (Versed 1 Mg/Ml) Confirm Administered Dose 2 mg .ROUTE .STK-MED ONE Stop: 05/24/20 11:28 Ondansetron HCl (Zofran) Confirm Administered Dose 4 mg .ROUTE .STK-MED ONE Stop: 05/24/20 11:28 Potassium Chloride (Klor-Con M20) 20 meq PO ONETIME ONE Stop: 05/26/20 08:50 Last Admin: 05/26/20 10:06 Dose: 20 meq Documented by: Propofol (Diprivan 20 Ml) Confirm Administered Dose 200 mg .ROUTE .STK-MED ONE Stop: 05/24/20 11:28 Rocuronium [place] (Rocuronium [place]) Confirm Administered Dose 50 mg .ROUTE .STK-MED ONE Stop: 05/24/20 11:28 Rocuronium [place] (Rocuronium [place]) Confirm Administered Dose 50 mg .ROUTE .STK-MED ONE Stop: 05/24/20 16:36 Sodium Phosphate (Neutra-Phos) 250 mg PO ONETIME ONE Stop: 05/26/20 09:55 Last Admin: 05/26/20 10:16 Dose: 250 mg Documented by: Sugammadex Sodium (Bridion) Confirm Administered Dose 200 mg .ROUTE .STK-MED ONE Stop: 05/24/20 08:40 - Exam Wound/Incisions: Healing Well, Dressing Dry and Intact General: Alert, Oriented, Cooperative HEENT: Pupils Equal, Pupils Reactive Lungs: Clear to Auscultation, Normal Respiratory Effort Cardiovascular: Regular Rate, Regular Rhythm GI/Abdominal Exam: Normal Bowel Sounds, Soft, Non-Tender, Distended (mildly). No: Guarding, Rigid, Rebound, Tender Extremities: Normal Inspection Skin: Warm, Dry, Intact Neurological: No New Focal Deficit Sepsis Event Note - Evaluation Sepsis Screening Result: No Definite Risk - Focused Exam Vital Signs: Vital Signs Temp Pulse Resp BP Pulse Ox 05/26/20 07:03 87 93 L 05/26/20 07:00 36.2 C 88 18 141/74 H 88 L 05/26/20 04:00 37.2 C 73 17 149/67 H 91 L 05/26/20 00:00 36.4 C 75 17 134/64 91 L - Problem List & Annotations (1) Appendicitis SNOMED Code(s): 74955690 Code(s): K37 - UNSPECIFIED APPENDICITIS Status: Acute Current Visit: Yes - Problem List Review Problem List Initiated/Reviewed/Updated: Yes - My Orders Last 24 Hours: Active Orders 24 hr Category Date Time Status Clear Liquid Diet [DIET] Diet 05/25/20 Lunch Active CBC W/O DIFF,HEMOGRAM [HEME] AM Lab 05/27/20 05:11 Ordered CBC W/O DIFF,HEMOGRAM [HEME] AM Lab 05/28/20 05:11 Ordered Heparin Sodium Med 05/25/20 09:45 Active 5,000 units SUBCUT Q12H Ibuprofen [Motrin] Med 05/25/20 20:23 Active 400 mg PO Q4H PRN Lisinopril/Hydrochlorothiazide [Lisinopril-HCTZ 10-12.5 Med 05/25/20 09:45 Active MG] 1 tab PO DAILY Magnesium Sulfate/Water [Magnesium Sulfate in Water Med 05/26/20 09:54 Active Premix] 4 gm Premix Bag 1 bag IV ONETIME Multivitamins [Tab-A-Naya] Med 05/25/20 09:45 Active 1 tab PO DAILY Medication Orders Diphenhydramine HCl (Benadryl) 50 mg IVPUSH Q4H PRN PRN Reason: Itching Docusate Sodium (Colace) 100 mg PO BID [facility] Last Admin: 05/26/20 10:06 Dose: 100 mg Documented by: CLIVE Cosigned by: MICHAEL Admin: 05/25/20 21:32 Dose: 100 mg Documented by: Admin: 05/25/20 10:18 Dose: 100 mg Documented by: TRAY Lisinopril/HCTZ (Lisinopril-Hctz 10-12.5 Mg) 1 tab PO DAILY [facility] Last Admin: 05/26/20 10:07 Dose: 1 tab Documented by: CLIVE Cosigned by: MICHAEL Admin: 05/25/20 10:27 Dose: 1 tab Documented by: TRAY Heparin Sodium (Porcine) (Heparin Sodium) 5,000 units SUBCUT Q12H [facility] Last Admin: 05/26/20 10:07 Dose: 5,000 units Documented by: CLIVE Cosigned by: MICHAEL Admin: 05/25/20 21:33 Dose: 5,000 units Documented by: Admin: 05/25/20 10:19 Dose: 5,000 units Documented by: TRAY Hydromorphone HCl (Dilaudid) 0.5 mg IVPUSH Q1H PRN PRN Reason: Pain (severe 7-10) Last Admin: 05/26/20 08:41 Dose: 0.5 mg Documented by: Admin: 05/25/20 08:10 Dose: 0.5 mg Documented by: Admin: 05/25/20 03:47 Dose: 0.5 mg Documented by: Admin: 05/24/20 21:40 Dose: 0.5 mg Documented by: PROFLUC Magnesium Sulfate 4 gm/ Premix 100 mls @ 50 mls/hr IV ONETIME ONE Stop: 05/26/20 11:53 Ibuprofen (Motrin) 400 mg PO Q4H PRN PRN Reason: Pain Last Admin: 05/26/20 03:45 Dose: 400 mg Documented by: LEONEL Metoprolol Tartrate (Lopressor) 5 mg IVPUSH Q6H PRN PRN Reason: Hypertension Multivitamins/Minerals/Vitamin C (Tab-A-Naya) 1 tab PO DAILY [facility] Last Admin: 05/26/20 10:06 Dose: 1 tab Documented by: CLIVE Bergigned by: MICHAEL Admin: 05/25/20 10:18 Dose: 1 tab Documented by: TRAY Ondansetron HCl (Zofran) 4 mg IVPUSH Q4H PRN PRN Reason: Nausea Last Admin: 05/26/20 08:45 Dose: 4 mg Documented by: Admin: 05/26/20 03:41 Dose: 4 mg Documented by: Admin: 05/25/20 19:45 Dose: 4 mg Documented by: Admin: 05/25/20 08:11 Dose: 4 mg Documented by: Admin: 05/25/20 03:53 Dose: 4 mg Documented by: Admin: 05/24/20 08:05 Dose: 4 mg Documented by: Admin: 05/24/20 04:37 Dose: 4 mg Documented by: PAULO Oxycodone/Acetaminophen (Percocet 325-5 Mg) 2 tab PO Q4H PRN PRN Reason: Pain (severe 7-10) Last Admin: 05/25/20 19:37 Dose: 2 tab Documented by: Admin: 05/25/20 14:14 Dose: 2 tab Documented by: TRAY Sodium Chloride (Saline Flush) 10 ml FLUSH ASDIRECTED PRN PRN Reason: Keep Vein Open Sodium Chloride (Saline Flush) 2.5 ml FLUSH ASDIRECTED PRN PRN Reason: Keep Vein Open Sodium Chloride (Normal Saline) 10 ml IV ASDIRECTED PRN PRN Reason: IV Use - Plan Plan (Free Text/Narrative):: Patient's main complaint is ongoing headaches. She thinks this is due to caffeine withdrawal. She will try to sip on caffeinated beverages today to see if this helps with her headache. She has not had a bowel movement or passed flatus yet. She can feel movement in her abdomen. On physical exam she has good bowel sounds throughout. Her drain has put out minimal serosanguineous fluid so it was removed today. All her dressings were removed and her wound sites all appear clean dry and intact with no signs of infection or breakdown. Her drain site and midline incision were covered with dry dressings. She is okay to shower today. She is tolerating a clear liquid diet. She used 1 dose of Zofran last night. She feels slightly nauseous but it is not severe. She has not thrown up. The patient has been getting up out of bed and walking as much as she can tolerate. She complains of generalized malaise. Her vital signs remained stable. Her white count today is down to 14,000. Will continue on IV Zosyn until her white blood cell count is within normal range. She's had good urine output and her BUN/creatinine are within normal range. I will discontinue her IV fluids for today. Her potassium magnesium and phosphorus were all low. She is on a daily multivitamin and I will replace these electrolytes accordingly. We discussed the goals that we need to reach before discharge. The patient's white blood cell count needs to be within normal range, her vital signs stable, the patient passing flatus and/or having a bowel movement, and tolerating a regular diet.
[2020-05-27] MEDS: Piperacillin/Tazobactam 3.375 GM in Sodium Chloride 0.9% 50 ML IV SCH ×3 (08:44→20:57)
--- NOTE | 2020-05-27 08:48 | CR ---
Abdomen: Upright view of the abdomen was obtained. Gas is noted within nondilated colon. Gas is noted within mildly dilated small bowel loops. Surgical material is seen most likely within the abdominal wall within the left abdomen. No free air is seen. Bony structures are grossly intact. Impression: 1. Mildly dilated loops of small bowel suggesting at least a partial small bowel obstruction. 2. No free air is seen. Diagnostic code #3 Study was dictated in MDT
[2020-05-27] MEDS: Ondansetron 4 MG/2 ML SDV IVPUSH PRN ×2 (08:49→21:18)
[2020-05-27] MEDS: Acetaminophen/oxyCODONE 325-5 MG Tab PO PRN ×2 (08:53→18:37)
[2020-05-27] MEDS: Docusate Sodium 100 MG Cap PO SCH ×2 (08:54→20:58)
[2020-05-27] MEDS: Multivitamin Tab PO SCH (08:54)
[2020-05-27] MEDS: Lisinopril/Hydrochlorothiazide 10-12.5 MG Tab PO SCH (08:54)
[2020-05-27] MEDS: Heparin Sodium 5,000 Units/ML Vial SUBCUT SCH ×2 (08:57→20:58)
[2020-05-27] MEDS ORDERED: Scopolamine 1.5 MG Transdermal Patch TRDERM PRN (09:13)
[2020-05-27] MEDS ORDERED: Metoclopramide 10 MG/2 ML SDV IVPUSH SCH (09:15)
[2020-05-27] MEDS: Lactated Ringers 1,000 ML IV SCH ×2 (09:45→19:38)
[2020-05-27] MEDS: Sennosides 8.6 MG Tab PO SCH (09:55)
[2020-05-27 10:01] LABS: BLOOD UREA NITROGEN,BUN 6 mg/dL (7.0-18.0); CARBON DIOXIDE,CO2 24.1 mmol/L (21.0-32.0); CHLORIDE,CL 98 mmol/L (98-107); GLUCOSE RANDOM 120 mg/dL (74-106); POTASSIUM,K 3.1 mmol/L (3.5-5.1); SODIUM,NA 135 mmol/L (136-145)
[2020-05-27] MEDS: Potassium Chloride 20 MEQ Tab.ER PO SCH ×2 (12:36→20:58)
--- NOTE | 2020-05-27 13:28 | PCM.SURGPN ---
- General Info Date of Service: 05/27/20 Date of Surgery/Procedure: 05/24/20 POD#: 3 - Review of Systems General: Reports: Weakness, Fatigue, Malaise. Denies: Appetite HEENT: Reports: No Symptoms Pulmonary: Reports: No Symptoms Cardiovascular: Reports: No Symptoms Gastrointestinal: Reports: Constipation, Decreased Appetite, Nausea, Vomiting. Denies: Flatus Genitourinary: Reports: No Symptoms Musculoskeletal: Reports: No Symptoms Skin: Reports: No Symptoms - Patient Data Vitals - Most Recent: Last Vital Signs Temp 36.9 C 05/27/20 12:35 Pulse 68 05/27/20 12:35 Resp 16 05/27/20 12:35 BP 158/77 H 05/27/20 12:35 Pulse Ox 92 L 05/27/20 12:35 Weight - Most Recent: 62.596 kg I&O - Last 24 Hours: Intake & Output 05/26/20 05/27/20 05/27/20 22:59 06:59 14:59 Intake Total 900 750 50 Output Total 800 1200 Balance 100 -450 50 Lab Results Last 24 Hrs: Laboratory Results - last 24 hr 05/27/20 05/27/20 Range/Units 05:16 09:25 WBC 13.14 H (4.0-11.0) K/uL RBC 3.82 L (4.30-5.90) M/uL Hgb 12.8 (12.0-16.0) g/dL Hct 37.9 (36.0-46.0) % MCV 99.2 H (80.0-98.0) fL MCH 33.5 H (27.0-32.0) pg MCHC 33.8 (31.0-37.0) g/dL RDW Std Deviation 46.8 (28.0-62.0) fl RDW Coeff of Daniela 13 (11.0-15.0) % Plt Count 301 (150-400) K/uL MPV 10.60 (7.40-12.00) fL Nucleated RBC % 0.0 /100WBC Nucleated RBCs # 0 K/uL Sodium 135 L (136-145) mmol/L Potassium 3.1 L (3.5-5.1) mmol/L Chloride 98 (98-107) mmol/L Carbon Dioxide 24.1 (21.0-32.0) mmol/L BUN 6 L (7.0-18.0) mg/dL Creatinine 0.6 (0.6-1.0) mg/dL Est Cr Clr Drug Dosing 89.72 mL/min Estimated GFR (MDRD) > 60.0 ml/min Glucose 120 H (74-106) mg/dL Calcium 8.5 (8.5-10.1) mg/dL Phosphorus 2.6 (2.6-4.7) mg/dL Magnesium 1.8 (1.8-2.4) mg/dL Med Orders - Current: Current Medications Diphenhydramine HCl (Benadryl) 50 mg IVPUSH Q4H PRN PRN Reason: Itching Docusate Sodium (Colace) 100 mg PO BID [facility] Last Admin: 05/27/20 08:54 Dose: 100 mg Documented by: Lisinopril/HCTZ (Lisinopril-Hctz 10-12.5 Mg) 1 tab PO DAILY [facility] Last Admin: 05/27/20 08:54 Dose: 1 tab Documented by: Heparin Sodium (Porcine) (Heparin Sodium) 5,000 units SUBCUT Q12H [facility] Last Admin: 05/27/20 08:57 Dose: 5,000 units Documented by: Hydromorphone HCl (Dilaudid) 0.5 mg IVPUSH Q1H PRN PRN Reason: Pain (severe 7-10) Last Admin: 05/26/20 21:10 Dose: 0.5 mg Documented by: Piperacillin Sod/Tazobactam (Sod 3.375 gm/ Sodium Chloride) 50 mls @ 100 mls/hr IV Q6H [facility] Last Admin: 05/27/20 08:44 Dose: 100 mls/hr Documented by: Lactated Ringer's (Ringers, Lactated) 1,000 mls @ 125 mls/hr IV ASDIRECTED [facility] Last Admin: 05/27/20 09:45 Dose: 125 mls/hr Documented by: Ibuprofen (Motrin) 400 mg PO Q4H PRN PRN Reason: Pain Last Admin: 05/26/20 03:45 Dose: 400 mg Documented by: Metoclopramide HCl (Reglan) 10 mg IVPUSH Q6H PRN PRN Reason: Nausea Metoprolol Tartrate (Lopressor) 5 mg IVPUSH Q6H PRN PRN Reason: Hypertension Multivitamins/Minerals/Vitamin C (Tab-A-Naya) 1 tab PO DAILY [facility] Last Admin: 05/27/20 08:54 Dose: 1 tab Documented by: Ondansetron HCl (Zofran) 4 mg IVPUSH Q4H PRN PRN Reason: Nausea Last Admin: 05/27/20 08:49 Dose: 4 mg Documented by: Oxycodone/Acetaminophen (Percocet 325-5 Mg) 2 tab PO Q4H PRN PRN Reason: Pain (severe 7-10) Last Admin: 05/27/20 08:53 Dose: 2 tab Documented by: Potassium Chloride (Klor-Con M20) 20 meq PO BID [facility] Stop: 05/28/20 12:16 Last Admin: 05/27/20 12:36 Dose: 20 meq Documented by: Scopolamine (Transderm-Scop) 1.5 mg TRDERM Q72H PRN PRN Reason: Nausea Senna (Senna) 8.6 mg PO DAILY [facility] Last Admin: 05/27/20 09:55 Dose: 8.6 mg Documented by: Sodium Chloride (Saline Flush) 10 ml FLUSH ASDIRECTED PRN PRN Reason: Keep Vein Open Sodium Chloride (Saline Flush) 2.5 ml FLUSH ASDIRECTED PRN PRN Reason: Keep Vein Open Sodium Chloride (Normal Saline) 10 ml IV ASDIRECTED PRN PRN Reason: IV Use Discontinued Medications Acetaminophen (Tylenol) 650 mg RECTAL Q4H PRN PRN Reason: Fever Bupivacaine HCl (Marcaine 0.5%) Confirm Administered Dose 30 ml .ROUTE .STK-MED ONE Stop: 05/24/20 14:42 Cefazolin Sodium (Ancef) Confirm Administered Dose 2 gm .ROUTE .STK-MED ONE Stop: 05/24/20 11:26 Cefazolin Sodium (Ancef) Confirm Administered Dose 1 gm .ROUTE .STK-MED ONE Stop: 05/24/20 16:15 Fentanyl (Sublimaze) Confirm Administered Dose 100 mcg .ROUTE .STK-MED ONE Stop: 05/24/20 11:28 Fentanyl (Sublimaze) Confirm Administered Dose 100 mcg .ROUTE .STK-MED ONE Stop: 05/24/20 15:48 Hydromorphone HCl (Dilaudid) 0.5 mg IVPUSH Q1H PRN PRN Reason: Pain Last Admin: 05/24/20 11:34 Dose: 0.5 mg Documented by: Hydromorphone HCl (Dilaudid) Confirm Administered Dose 2 mg .ROUTE .STK-MED ONE Stop: 05/24/20 11:28 Hydromorphone HCl (Dilaudid) 0.5 mg IVPUSH Q1H PRN PRN Reason: Pain (severe 7-10) Lactated Ringer's (Ringers, Lactated) 1,000 mls @ 125 mls/hr IV ASDIRECTED [facility] Last Admin: 05/26/20 08:22 Dose: 125 mls/hr Documented by: Piperacillin Sod/Tazobactam (Sod 3.375 gm/ Sodium Chloride) 50 mls @ 100 mls/hr IV Q6H [facility] Stop: 05/26/20 06:00 Last Admin: 05/26/20 06:27 Dose: 100 mls/hr Documented by: Sodium Chloride (Normal Saline) Confirm Administered Dose 20 mls @ as directed .ROUTE .STK-MED ONE Stop: 05/24/20 11:31 Acetaminophen (Ofirmev) Confirm Administered Dose 100 mls @ as directed .ROUTE .STK-MED ONE Stop: 05/24/20 15:46 Cefoxitin Sodium 2 gm/ Sodium (Chloride) 50 mls @ 100 mls/hr IV ONETIME ONE Stop: 05/24/20 17:03 Last Admin: 05/24/20 19:59 Dose: Not Given Documented by: Cefoxitin Sodium 2 gm/ Premix 50 mls @ 100 mls/hr IV ONETIME ONE Stop: 05/24/20 17:14 Last Admin: 05/24/20 18:47 Dose: Not Given Documented by: Acetaminophen 650 mg/ Premix 65 mls @ 400 mls/hr IV Q4H PRN PRN Reason: Pain Magnesium Sulfate 4 gm/ Premix 100 mls @ 50 mls/hr IV ONETIME ONE Stop: 05/26/20 11:53 Last Admin: 05/26/20 11:17 Dose: 50 mls/hr Documented by: Ketorolac Tromethamine (Toradol) 15 mg IVPUSH Q6H [facility] Stop: 05/25/20 11:31 Last Admin: 05/25/20 12:00 Dose: 15 mg Documented by: Ketorolac Tromethamine (Toradol) Confirm Administered Dose 30 mg .ROUTE .STK-MED ONE Stop: 05/24/20 18:13 Last Admin: 05/24/20 18:46 Dose: Not Given Documented by: Lidocaine (Xylocaine-Mpf 2%) Confirm Administered Dose 5 ml .ROUTE .STK-MED ONE Stop: 05/24/20 11:30 Metoclopramide HCl (Reglan) 10 mg IVPUSH Q6H [facility] Last Admin: 05/27/20 11:28 Dose: Not Given Documented by: Midazolam HCl (Versed 1 Mg/Ml) Confirm Administered Dose 2 mg .ROUTE .STK-MED ONE Stop: 05/24/20 11:28 Ondansetron HCl (Zofran) Confirm Administered Dose 4 mg .ROUTE .STK-MED ONE Stop: 05/24/20 11:28 Potassium Chloride (Klor-Con M20) 20 meq PO ONETIME ONE Stop: 05/26/20 08:50 Last Admin: 05/26/20 10:06 Dose: 20 meq Documented by: Propofol (Diprivan 20 Ml) Confirm Administered Dose 200 mg .ROUTE .STK-MED ONE Stop: 05/24/20 11:28 Rocuronium [place] (Rocuronium [place]) Confirm Administered Dose 50 mg .ROUTE .STK-MED ONE Stop: 05/24/20 11:28 Rocuronium [place] (Rocuronium [place]) Confirm Administered Dose 50 mg .ROUTE .STK-MED ONE Stop: 05/24/20 16:36 Sodium Phosphate (Neutra-Phos) 250 mg PO ONETIME ONE Stop: 05/26/20 09:55 Last Admin: 05/26/20 10:16 Dose: 250 mg Documented by: Sugammadex Sodium (Bridion) Confirm Administered Dose 200 mg .ROUTE .STK-MED ONE Stop: 05/24/20 08:40 - Exam Wound/Incisions: Healing Well, Dressing Dry and Intact, No Drainage General: Alert, Oriented, Cooperative HEENT: Pupils Equal Lungs: Normal Respiratory Effort Cardiovascular: Regular Rate GI/Abdominal Exam: Soft, Non-Tender, No Mass, Distended Skin: Warm, Dry, Intact Neurological: No New Focal Deficit Sepsis Event Note - Evaluation Sepsis Screening Result: No Definite Risk - Focused Exam Vital Signs: Vital Signs Temp Pulse Resp BP Pulse Ox 05/27/20 12:35 36.9 C 68 16 158/77 H 92 L 05/27/20 07:40 37.2 C 87 16 130/64 93 L 05/27/20 04:00 37.2 C 86 17 141/78 H 92 L - Problem List & Annotations (1) Appendicitis SNOMED Code(s): 83796236 Code(s): K37 - UNSPECIFIED APPENDICITIS Status: Acute Current Visit: Yes Qualifiers: Appendicitis type: acute appendicitis Acute appendicitis type: with generalized peritonitis Appendicitis gangrene presence: with gangrene Appendicitis perforation presence: with perforation Appendicitis abscess presence: with abscess Qualified Code(s): K35.21 - Acute appendicitis with generalized peritonitis, with abscess (2) Postoperative ileus SNOMED Code(s): 484579762 Code(s): K91.89 - OTH POSTPROCEDURAL COMPLICATIONS AND DISORDERS OF DGSTV SYS; K56.7 - ILEUS, UNSPECIFIED Status: Acute Current Visit: Yes - Problem List Review Problem List Initiated/Reviewed/Updated: Yes - My Orders Last 24 Hours: Active Orders 24 hr Category Date Time Status NPO [Nothing Per Oral Diet] [DIET] Diet 05/27/20 Lunch Active CBC W/O DIFF,HEMOGRAM [HEME] AM Lab 05/28/20 05:11 Ordered CBC W/O DIFF,HEMOGRAM [HEME] Routine Lab 05/27/20 15:00 Ordered Lactated Ringers [Ringers, Lactated] 1,000 ml Med 05/27/20 09:30 Active IV ASDIRECTED Metoclopramide [Reglan] Med 05/27/20 09:37 Active 10 mg IVPUSH Q6H PRN Piperacillin/Tazobactam [Piperacil-Tazobact] 3.375 gm Med 05/27/20 08:15 Active Sodium Chloride 0.9% [Normal Saline] 50 ml IV Q6H Potassium Chloride [Klor-Con M20] Med 05/27/20 12:15 Active 20 meq PO BID Scopolamine [Transderm-Scop] Med 05/27/20 09:13 Active 1.5 mg TRDERM Q72H PRN Sennosides [Senna] Med 05/27/20 09:00 Active 8.6 mg PO DAILY Medication Orders Diphenhydramine HCl (Benadryl) 50 mg IVPUSH Q4H PRN PRN Reason: Itching Docusate Sodium (Colace) 100 mg PO BID [facility] Last Admin: 05/27/20 08:54 Dose: 100 mg Documented by: Admin: 05/26/20 21:03 Dose: 100 mg Documented by: Admin: 05/26/20 10:06 Dose: 100 mg Documented by: CLIVE Cosigned by: MICHAEL Admin: 05/25/20 21:32 Dose: 100 mg Documented by: Admin: 05/25/20 10:18 Dose: 100 mg Documented by: TRAY Lisinopril/HCTZ (Lisinopril-Hctz 10-12.5 Mg) 1 tab PO DAILY [facility] Last Admin: 05/27/20 08:54 Dose: 1 tab Documented by: Admin: 05/26/20 10:07 Dose: 1 tab Documented by: CLIVE Cosigned by: MICHAEL Admin: 05/25/20 10:27 Dose: 1 tab Documented by: TRAY Heparin Sodium (Porcine) (Heparin Sodium) 5,000 units SUBCUT Q12H [facility] Last Admin: 05/27/20 08:57 Dose: 5,000 units Documented by: Admin: 05/26/20 21:15 Dose: 5,000 units Documented by: Admin: 05/26/20 10:07 Dose: 5,000 units Documented by: CLIVE Cosigned by: MICHAEL Admin: 05/25/20 21:33 Dose: 5,000 units Documented by: Admin: 05/25/20 10:19 Dose: 5,000 units Documented by: TRAY Hydromorphone HCl (Dilaudid) 0.5 mg IVPUSH Q1H PRN PRN Reason: Pain (severe 7-10) Last Admin: 05/26/20 21:10 Dose: 0.5 mg Documented by: Admin: 05/26/20 16:46 Dose: 0.5 mg Documented by: Admin: 05/26/20 08:41 Dose: 0.5 mg Documented by: Admin: 05/25/20 08:10 Dose: 0.5 mg Documented by: Admin: 05/25/20 03:47 Dose: 0.5 mg Documented by: Admin: 05/24/20 21:40 Dose: 0.5 mg Documented by: MARY Piperacillin Sod/Tazobactam (Sod 3.375 gm/ Sodium Chloride) 50 mls @ 100 mls/hr IV Q6H [facility] Last Admin: 05/27/20 08:44 Dose: 100 mls/hr Documented by: ALPHONSO Lactated Ringer's (Ringers, Lactated) 1,000 mls @ 125 mls/hr IV ASDIRECTED [facility] Last Admin: 05/27/20 09:45 Dose: 125 mls/hr Documented by: ALPHONSO Ibuprofen (Motrin) 400 mg PO Q4H PRN PRN Reason: Pain Last Admin: 05/26/20 03:45 Dose: 400 mg Documented by: LEONEL Metoclopramide HCl (Reglan) 10 mg IVPUSH Q6H PRN PRN Reason: Nausea Metoprolol Tartrate (Lopressor) 5 mg IVPUSH Q6H PRN PRN Reason: Hypertension Multivitamins/Minerals/Vitamin C (Tab-A-Naya) 1 tab PO DAILY [facility] Last Admin: 05/27/20 08:54 Dose: 1 tab Documented by: Admin: 05/26/20 10:06 Dose: 1 tab Documented by: CLIVE Bergigned by: MICHAEL Admin: 05/25/20 10:18 Dose: 1 tab Documented by: TRAY Ondansetron HCl (Zofran) 4 mg IVPUSH Q4H PRN PRN Reason: Nausea Last Admin: 05/27/20 08:49 Dose: 4 mg Documented by: Admin: 05/26/20 21:03 Dose: 4 mg Documented by: Admin: 05/26/20 16:46 Dose: 4 mg Documented by: Admin: 05/26/20 08:45 Dose: 4 mg Documented by: Admin: 05/26/20 03:41 Dose: 4 mg Documented by: Admin: 05/25/20 19:45 Dose: 4 mg Documented by: Admin: 05/25/20 08:11 Dose: 4 mg Documented by: Admin: 05/25/20 03:53 Dose: 4 mg Documented by: Admin: 05/24/20 08:05 Dose: 4 mg Documented by: Admin: 05/24/20 04:37 Dose: 4 mg Documented by: PAULO Oxycodone/Acetaminophen (Percocet 325-5 Mg) 2 tab PO Q4H PRN PRN Reason: Pain (severe 7-10) Last Admin: 05/27/20 08:53 Dose: 2 tab Documented by: Admin: 05/25/20 19:37 Dose: 2 tab Documented by: Admin: 05/25/20 14:14 Dose: 2 tab Documented by: TRAY Potassium Chloride (Klor-Con M20) 20 meq PO BID [facility] Stop: 05/28/20 12:16 Last Admin: 05/27/20 12:36 Dose: 20 meq Documented by: ALPHONSO Scopolamine (Transderm-Scop) 1.5 mg TRDERM Q72H PRN PRN Reason: Nausea Senna (Senna) 8.6 mg PO DAILY [facility] Last Admin: 05/27/20 09:55 Dose: 8.6 mg Documented by: ALPHONSO Sodium Chloride (Saline Flush) 10 ml FLUSH ASDIRECTED PRN PRN Reason: Keep Vein Open Sodium Chloride (Saline Flush) 2.5 ml FLUSH ASDIRECTED PRN PRN Reason: Keep Vein Open Sodium Chloride (Normal Saline) 10 ml IV ASDIRECTED PRN PRN Reason: IV Use - Plan Plan (Free Text/Narrative):: The patient is postop day 3 from a laparoscopic converted to open appendectomy for perforated appendicitis associated with generalized peritonitis and abscess. She states that this morning she feels worse than ever. She is complaining of malaise fatigue overall body soreness as well as increased nausea and abdominal distention. While he was visiting with her the patient had a small vomitus. When reviewing her chart this morning the charge nurse noticed that her antibiotics have been discontinued yesterday. Due to a technical error in our electronic medical record system her antibiotic order was discontinued. The patient missed 3 doses of her antibiotics since this was not caught. Her Zosyn was restarted this morning. Her white blood cell count is 13,000 down from 14,000. Her vital signs are stable. An x-ray of the abdomen was performed this morning. This shows mildly dilated small bowel. This is consistent with a postoperative ileus. This is not unexpected given that her small bowel appeared injected and inflamed during the operation. She has not had a bowel movement or pass flatus since Monday. She does have bowel sounds. The patient was made nothing by mouth other than ice chips and sips with meds. IV fluids were restarted. Pain: IV Dilaudid 0.5 mg every 1 hour as needed for severe pain. Percocet 2 tabs every 4 hours as needed for moderate pain. Ibuprofen 400 mg every 4 hours as needed for mild pain. Patient's headache has resolved. CV: Patient is on her home lisinopril hydrochlorothiazide. Her blood pressure and heart rate are stable. Pulmonary: The patient's oxygen saturations are in the low 90s but I believe she has undiagnosed COPD. Her lung sounds were clear. Continue IS and out of bed activity. GI: Patient has a postoperative ileus. Lactated Ringer's at 125 mils per hour. The patient is hypokalemic today. Potassium ordered for replacement. Nothing by mouth other than ice chips and sips with meds. Renal: Patient had increased urine output yesterday and was slightly neck negative yesterday. BUN/creatinine within normal limits. Continue to watch magnesium phosphorus and potassium daily. BMP in the morning. ID: IV zosyn 3.375 mg q 6hr. Continue until WBC within normal range then will switch to oral antibiotics. Heme: Stable. Px: Heparin gtt. Since patient is NPO I will start GI px.
[2020-05-27] MEDS: Pantoprazole 40 MG Tab.CR PO SCH (14:01)
[2020-05-27] MEDS: Metoclopramide 10 MG/2 ML SDV IVPUSH PRN (18:38)
[2020-05-27] MEDS: HYDROmorphone 1 MG/ML Syringe IVPUSH PRN (21:16)
[2020-05-28] MEDS: Piperacillin/Tazobactam 3.375 GM in Sodium Chloride 0.9% 50 ML IV SCH ×4 (02:25→20:55)
[2020-05-28] MEDS: Acetaminophen/oxyCODONE 325-5 MG Tab PO PRN ×3 (03:31→20:54)
[2020-05-28] MEDS: Lactated Ringers 1,000 ML IV SCH (03:34)
[2020-05-28] MEDS: Metoclopramide 10 MG/2 ML SDV IVPUSH PRN (03:41)
[2020-05-28 08:46] LABS: BLOOD UREA NITROGEN,BUN 9 mg/dL (7.0-18.0); CARBON DIOXIDE,CO2 26.7 mmol/L (21.0-32.0); CHLORIDE,CL 98 mmol/L (98-107); GLUCOSE RANDOM 100 mg/dL (74-106); POTASSIUM,K 3.4 mmol/L (3.5-5.1); SODIUM,NA 136 mmol/L (136-145)
[2020-05-28] MEDS: Pantoprazole 40 MG Tab.CR PO SCH (09:33)
[2020-05-28] MEDS: Lisinopril/Hydrochlorothiazide 10-12.5 MG Tab PO SCH (09:33)
[2020-05-28] MEDS: Potassium Chloride 20 MEQ Tab.ER PO SCH (09:33)
[2020-05-28] MEDS: Sennosides 8.6 MG Tab PO SCH (09:33)
[2020-05-28] MEDS: Docusate Sodium 100 MG Cap PO SCH ×2 (09:33→20:54)
[2020-05-28] MEDS: Multivitamin Tab PO SCH (09:33)
[2020-05-28] MEDS: Heparin Sodium 5,000 Units/ML Vial SUBCUT SCH ×2 (09:35→20:54)
[2020-05-28] MEDS ORDERED: Magnesium Sulfate/Water 4 GM in Premix Bag 1 BAG IV ONE (10:01)
[2020-05-28] MEDS ORDERED: Magnesium Sulfate/Water 2 GM in Premix Bag 1 BAG IV ONE (10:15)
[2020-05-28] MEDS ORDERED: Bisacodyl 10 MG Supp RECTAL ONE (10:19)
[2020-05-28] MEDS: Dextrose 5%-0.9% NaCl with KCl 1,000 ML IV SCH (10:54)
[2020-05-28] MEDS: Ondansetron 4 MG/2 ML SDV IVPUSH PRN ×2 (13:32→20:55)
--- NOTE | 2020-05-28 13:38 | PCM.SURGPN ---
- General Info Date of Service: 05/28/20 Date of Surgery/Procedure: 05/24/20 POD#: 4 - Review of Systems General: Reports: No Symptoms HEENT: Reports: No Symptoms Pulmonary: Reports: No Symptoms Cardiovascular: Reports: No Symptoms Gastrointestinal: Reports: No Symptoms Genitourinary: Reports: No Symptoms Musculoskeletal: Reports: No Symptoms Skin: Reports: No Symptoms - Patient Data Vitals - Most Recent: Last Vital Signs Temp 36.4 C 05/28/20 11:30 Pulse 84 05/28/20 11:30 Resp 18 05/28/20 11:30 BP 156/72 H 05/28/20 11:30 Pulse Ox 95 05/28/20 11:30 Weight - Most Recent: 62.596 kg I&O - Last 24 Hours: Intake & Output 05/27/20 05/28/20 05/28/20 22:59 06:59 14:59 Intake Total 778 2253 Output Total 750 650 Balance 28 1603 Lab Results Last 24 Hrs: Laboratory Results - last 24 hr 05/27/20 05/28/20 05/28/20 Range/Units 15:14 05:12 05:12 WBC 12.00 H 12.56 H (4.0-11.0) K/uL RBC 3.68 L 3.52 L (4.30-5.90) M/uL Hgb 12.5 11.8 L (12.0-16.0) g/dL Hct 36.2 35.0 L (36.0-46.0) % MCV 98.4 H 99.4 H (80.0-98.0) fL MCH 34.0 H 33.5 H (27.0-32.0) pg MCHC 34.5 33.7 (31.0-37.0) g/dL RDW Std Deviation 46.5 47.3 (28.0-62.0) fl RDW Coeff of Daniela 13 13 (11.0-15.0) % Plt Count 274 289 (150-400) K/uL MPV 10.10 10.10 (7.40-12.00) fL Nucleated RBC % 0.0 0.0 /100WBC Nucleated RBCs # 0 0 K/uL Sodium 136 (136-145) mmol/L Potassium 3.4 L (3.5-5.1) mmol/L Chloride 98 (98-107) mmol/L Carbon Dioxide 26.7 (21.0-32.0) mmol/L BUN 9 (7.0-18.0) mg/dL Creatinine 0.6 (0.6-1.0) mg/dL Est Cr Clr Drug Dosing 89.72 mL/min Estimated GFR (MDRD) > 60.0 ml/min Glucose 100 (74-106) mg/dL Calcium 8.5 (8.5-10.1) mg/dL Phosphorus (2.6-4.7) mg/dL Magnesium 1.6 L (1.8-2.4) mg/dL 05/28/20 Range/Units 05:12 WBC (4.0-11.0) K/uL RBC (4.30-5.90) M/uL Hgb (12.0-16.0) g/dL Hct (36.0-46.0) % MCV (80.0-98.0) fL MCH (27.0-32.0) pg MCHC (31.0-37.0) g/dL RDW Std Deviation (28.0-62.0) fl RDW Coeff of Daniela (11.0-15.0) % Plt Count (150-400) K/uL MPV (7.40-12.00) fL Nucleated RBC % /100WBC Nucleated RBCs # K/uL Sodium (136-145) mmol/L Potassium (3.5-5.1) mmol/L Chloride (98-107) mmol/L Carbon Dioxide (21.0-32.0) mmol/L BUN (7.0-18.0) mg/dL Creatinine (0.6-1.0) mg/dL Est Cr Clr Drug Dosing mL/min Estimated GFR (MDRD) ml/min Glucose (74-106) mg/dL Calcium (8.5-10.1) mg/dL Phosphorus 2.7 (2.6-4.7) mg/dL Magnesium (1.8-2.4) mg/dL Med Orders - Current: Current Medications Diphenhydramine HCl (Benadryl) 50 mg IVPUSH Q4H PRN PRN Reason: Itching Docusate Sodium (Colace) 100 mg PO BID [facility] Last Admin: 09/03/20 09:33 Dose: 100 mg Documented by: Lisinopril/HCTZ (Lisinopril-Hctz 10-12.5 Mg) 1 tab PO DAILY [facility] Last Admin: 05/28/20 09:33 Dose: 1 tab Documented by: Heparin Sodium (Porcine) (Heparin Sodium) 5,000 units SUBCUT Q12H [facility] Last Admin: 05/28/20 09:35 Dose: 5,000 units Documented by: Hydromorphone HCl (Dilaudid) 0.5 mg IVPUSH Q1H PRN PRN Reason: Pain (severe 7-10) Last Admin: 05/27/20 21:16 Dose: 0.5 mg Documented by: Piperacillin Sod/Tazobactam (Sod 3.375 gm/ Sodium Chloride) 50 mls @ 100 mls/hr IV Q6H [facility] Last Admin: 05/28/20 09:04 Dose: 100 mls/hr Documented by: Potassium Chloride/Dextrose/Sod Cl (D5 Ns With 20 Meq Kcl) 1,000 mls @ 100 mls/hr IV Q10H [facility] Last Admin: 05/28/20 10:54 Dose: 100 mls/hr Documented by: Ibuprofen (Motrin) 400 mg PO Q4H PRN PRN Reason: Pain Last Admin: 05/26/20 03:45 Dose: 400 mg Documented by: Metoclopramide HCl (Reglan) 10 mg IVPUSH Q6H PRN PRN Reason: Nausea Last Admin: 05/28/20 03:41 Dose: 10 mg Documented by: Metoprolol Tartrate (Lopressor) 5 mg IVPUSH Q6H PRN PRN Reason: Hypertension Multivitamins/Minerals/Vitamin C (Tab-A-Naya) 1 tab PO DAILY [facility] Last Admin: 05/28/20 09:33 Dose: 1 tab Documented by: Ondansetron HCl (Zofran) 4 mg IVPUSH Q4H PRN PRN Reason: Nausea Last Admin: 05/27/20 21:18 Dose: 4 mg Documented by: Oxycodone/Acetaminophen (Percocet 325-5 Mg) 2 tab PO Q4H PRN PRN Reason: Pain (severe 7-10) Last Admin: 05/28/20 03:31 Dose: 2 tab Documented by: Pantoprazole Sodium (Protonix) 40 mg PO DAILY [facility] Last Admin: 05/28/20 09:33 Dose: 40 mg Documented by: Scopolamine (Transderm-Scop) 1.5 mg TRDERM Q72H PRN PRN Reason: Nausea Senna (Senna) 8.6 mg PO DAILY [facility] Last Admin: 05/28/20 09:33 Dose: 8.6 mg Documented by: Sodium Chloride (Saline Flush) 10 ml FLUSH ASDIRECTED PRN PRN Reason: Keep Vein Open Sodium Chloride (Saline Flush) 2.5 ml FLUSH ASDIRECTED PRN PRN Reason: Keep Vein Open Sodium Chloride (Normal Saline) 10 ml IV ASDIRECTED PRN PRN Reason: IV Use Discontinued Medications Acetaminophen (Tylenol) 650 mg RECTAL Q4H PRN PRN Reason: Fever Bisacodyl (Dulcolax) 10 mg RECTAL ONETIME ONE Stop: 05/28/20 10:20 Last Admin: 05/28/20 10:39 Dose: 10 mg Documented by: Bupivacaine HCl (Marcaine 0.5%) Confirm Administered Dose 30 ml .ROUTE .STK-MED ONE Stop: 05/24/20 14:42 Cefazolin Sodium (Ancef) Confirm Administered Dose 2 gm .ROUTE .STK-MED ONE Stop: 05/24/20 11:26 Cefazolin Sodium (Ancef) Confirm Administered Dose 1 gm .ROUTE .STK-MED ONE Stop: 05/24/20 16:15 Fentanyl (Sublimaze) Confirm Administered Dose 100 mcg .ROUTE .STK-MED ONE Stop: 05/24/20 11:28 Fentanyl (Sublimaze) Confirm Administered Dose 100 mcg .ROUTE .STK-MED ONE Stop: 05/24/20 15:48 Hydromorphone HCl (Dilaudid) 0.5 mg IVPUSH Q1H PRN PRN Reason: Pain Last Admin: 05/24/20 11:34 Dose: 0.5 mg Documented by: Hydromorphone HCl (Dilaudid) Confirm Administered Dose 2 mg .ROUTE .STK-MED ONE Stop: 05/24/20 11:28 Hydromorphone HCl (Dilaudid) 0.5 mg IVPUSH Q1H PRN PRN Reason: Pain (severe 7-10) Lactated Ringer's (Ringers, Lactated) 1,000 mls @ 125 mls/hr IV ASDIRECTED [facility] Last Admin: 05/26/20 08:22 Dose: 125 mls/hr Documented by: Piperacillin Sod/Tazobactam (Sod 3.375 gm/ Sodium Chloride) 50 mls @ 100 mls/hr IV Q6H [facility] Stop: 05/26/20 06:00 Last Admin: 05/26/20 06:27 Dose: 100 mls/hr Documented by: Sodium Chloride (Normal Saline) Confirm Administered Dose 20 mls @ as directed .ROUTE .STK-MED ONE Stop: 05/24/20 11:31 Acetaminophen (Ofirmev) Confirm Administered Dose 100 mls @ as directed .ROUTE .STK-MED ONE Stop: 05/24/20 15:46 Cefoxitin Sodium 2 gm/ Sodium (Chloride) 50 mls @ 100 mls/hr IV ONETIME ONE Stop: 05/24/20 17:03 Last Admin: 05/24/20 19:59 Dose: Not Given Documented by: Cefoxitin Sodium 2 gm/ Premix 50 mls @ 100 mls/hr IV ONETIME ONE Stop: 05/24/20 17:14 Last Admin: 05/24/20 18:47 Dose: Not Given Documented by: Acetaminophen 650 mg/ Premix 65 mls @ 400 mls/hr IV Q4H PRN PRN Reason: Pain Magnesium Sulfate 4 gm/ Premix 100 mls @ 50 mls/hr IV ONETIME ONE Stop: 05/26/20 11:53 Last Admin: 05/26/20 11:17 Dose: 50 mls/hr Documented by: Lactated Ringer's (Ringers, Lactated) 1,000 mls @ 125 mls/hr IV ASDIRECTED [facility] Last Admin: 05/28/20 03:34 Dose: 125 mls/hr Documented by: Magnesium Sulfate 2 gm/ Premix 50 mls @ 50 mls/hr IV ONETIME ONE Stop: 05/28/20 11:14 Last Admin: 05/28/20 10:57 Dose: 50 mls/hr Documented by: Ketorolac Tromethamine (Toradol) 15 mg IVPUSH Q6H [facility] Stop: 05/25/20 11:31 Last Admin: 05/25/20 12:00 Dose: 15 mg Documented by: Ketorolac Tromethamine (Toradol) Confirm Administered Dose 30 mg .ROUTE .STK-MED ONE Stop: 05/24/20 18:13 Last Admin: 05/24/20 18:46 Dose: Not Given Documented by: Lidocaine (Xylocaine-Mpf 2%) Confirm Administered Dose 5 ml .ROUTE .STK-MED ONE Stop: 05/24/20 11:30 Metoclopramide HCl (Reglan) 10 mg IVPUSH Q6H [facility] Last Admin: 05/27/20 11:28 Dose: Not Given Documented by: Midazolam HCl (Versed 1 Mg/Ml) Confirm Administered Dose 2 mg .ROUTE .STK-MED ONE Stop: 05/24/20 11:28 Ondansetron HCl (Zofran) Confirm Administered Dose 4 mg .ROUTE .STK-MED ONE Stop: 05/24/20 11:28 Potassium Chloride (Klor-Con M20) 20 meq PO ONETIME ONE Stop: 05/26/20 08:50 Last Admin: 05/26/20 10:06 Dose: 20 meq Documented by: Potassium Chloride (Klor-Con M20) 20 meq PO BID [facility] Stop: 05/28/20 12:16 Last Admin: 05/28/20 09:33 Dose: 20 meq Documented by: Propofol (Diprivan 20 Ml) Confirm Administered Dose 200 mg .ROUTE .STK-MED ONE Stop: 05/24/20 11:28 Rocuronium Madras (Rocuronium Madras) Confirm Administered Dose 50 mg .ROUTE .STK-MED ONE Stop: 05/24/20 11:28 Rocuronium Madras (Rocuronium Madras) Confirm Administered Dose 50 mg .ROUTE .STK-MED ONE Stop: 05/24/20 16:36 Sodium Phosphate (Neutra-Phos) 250 mg PO ONETIME ONE Stop: 05/26/20 09:55 Last Admin: 05/26/20 10:16 Dose: 250 mg Documented by: Sugammadex Sodium (Bridion) Confirm Administered Dose 200 mg .ROUTE .STK-MED ONE Stop: 05/24/20 08:40 - Exam Wound/Incisions: Healing Well, Dressing Dry and Intact General: Alert, Oriented, Cooperative HEENT: Pupils Equal Lungs: Clear to Auscultation, Normal Respiratory Effort Cardiovascular: Regular Rate, Regular Rhythm GI/Abdominal Exam: Normal Bowel Sounds, Soft, Non-Tender, Distended. No: Guarding, Rigid, Rebound, Tender Extremities: Normal Inspection Skin: Warm, Dry, Intact Sepsis Event Note - Evaluation Sepsis Screening Result: No Definite Risk - Focused Exam Vital Signs: Vital Signs Temp Pulse Resp BP BP Pulse Ox 05/28/20 11:30 36.4 C 84 18 156/72 H 95 05/28/20 06:50 36.5 C 70 16 157/70 H 95 05/28/20 04:30 36.4 C 68 16 151/73 H 92 L - Problem List & Annotations (1) Appendicitis SNOMED Code(s): 15047580 Code(s): K37 - UNSPECIFIED APPENDICITIS Status: Acute Current Visit: Yes Qualifiers: Appendicitis type: acute appendicitis Acute appendicitis type: with generalized peritonitis Appendicitis gangrene presence: with gangrene Appendicitis perforation presence: with perforation Appendicitis abscess presence: with abscess Qualified Code(s): K35.21 - Acute appendicitis with generalized peritonitis, with abscess (2) Postoperative ileus SNOMED Code(s): 451866724 Code(s): K91.89 - OTH POSTPROCEDURAL COMPLICATIONS AND DISORDERS OF DGSTV SYS; K56.7 - ILEUS, UNSPECIFIED Status: Acute Current Visit: Yes - Problem List Review Problem List Initiated/Reviewed/Updated: Yes - My Orders Last 24 Hours: Active Orders 24 hr Category Date Time Status Dextrose 5%-0.9% NaCl with KCl [D5 NS with 20 mEq KCl] Med 05/28/20 10:30 Active 1,000 ml IV Q10H Pantoprazole [ProTONIX] Med 05/27/20 13:30 Active 40 mg PO DAILY Medication Orders Diphenhydramine HCl (Benadryl) 50 mg IVPUSH Q4H PRN PRN Reason: Itching Docusate Sodium (Colace) 100 mg PO BID [facility] Last Admin: 05/28/20 09:33 Dose: 100 mg Documented by: JOANIE Cosigned by: WILLIAMS Admin: 05/27/20 20:58 Dose: 100 mg Documented by: Admin: 05/27/20 08:54 Dose: 100 mg Documented by: Admin: 05/26/20 21:03 Dose: 100 mg Documented by: Admin: 05/26/20 10:06 Dose: 100 mg Documented by: CLIVE Cosigned by: MICHAEL Admin: 05/25/20 21:32 Dose: 100 mg Documented by: Admin: 05/25/20 10:18 Dose: 100 mg Documented by: TRAY Lisinopril/HCTZ (Lisinopril-Hctz 10-12.5 Mg) 1 tab PO DAILY [facility] Last Admin: 05/28/20 09:33 Dose: 1 tab Documented by: JOANIE Cosigned by: WILLIAMS Admin: 05/27/20 08:54 Dose: 1 tab Documented by: Admin: 05/26/20 10:07 Dose: 1 tab Documented by: CLIVE Cosigned by: MICHAEL Admin: 05/25/20 10:27 Dose: 1 tab Documented by: TRAY Heparin Sodium (Porcine) (Heparin Sodium) 5,000 units SUBCUT Q12H [facility] Last Admin: 05/28/20 09:35 Dose: 5,000 units Documented by: JOANIE Cosigned by: WILLIAMS Admin: 05/27/20 20:58 Dose: 5,000 units Documented by: Admin: 05/27/20 08:57 Dose: 5,000 units Documented by: Admin: 05/26/20 21:15 Dose: 5,000 units Documented by: Admin: 05/26/20 10:07 Dose: 5,000 units Documented by: CLIVE Cosigned by: MICHAEL Admin: 05/25/20 21:33 Dose: 5,000 units Documented by: Admin: 05/25/20 10:19 Dose: 5,000 units Documented by: TRAY Hydromorphone HCl (Dilaudid) 0.5 mg IVPUSH Q1H PRN PRN Reason: Pain (severe 7-10) Last Admin: 05/27/20 21:16 Dose: 0.5 mg Documented by: Admin: 05/26/20 21:10 Dose: 0.5 mg Documented by: Admin: 05/26/20 16:46 Dose: 0.5 mg Documented by: Admin: 05/26/20 08:41 Dose: 0.5 mg Documented by: Admin: 05/25/20 08:10 Dose: 0.5 mg Documented by: Admin: 05/25/20 03:47 Dose: 0.5 mg Documented by: Admin: 05/24/20 21:40 Dose: 0.5 mg Documented by: PROFPEDRITO Piperacillin Sod/Tazobactam (Sod 3.375 gm/ Sodium Chloride) 50 mls @ 100 mls/hr IV Q6H [facility] Last Admin: 05/28/20 09:04 Dose: 100 mls/hr Documented by: Infusion: 05/28/20 02:55 Dose: 100 mls/hr Documented by: Admin: 05/28/20 02:25 Dose: 100 mls/hr Documented by: Infusion: 05/27/20 21:27 Dose: 100 mls/hr Documented by: Admin: 05/27/20 20:57 Dose: 100 mls/hr Documented by: Infusion: 05/27/20 14:32 Dose: 100 mls/hr Documented by: Admin: 05/27/20 14:02 Dose: 100 mls/hr Documented by: Infusion: 05/27/20 09:14 Dose: 100 mls/hr Documented by: Admin: 05/27/20 08:44 Dose: 100 mls/hr Documented by: ALPHONSO Potassium Chloride/Dextrose/Sod Cl (D5 Ns With 20 Meq Kcl) 1,000 mls @ 100 mls/hr IV Q10H [facility] Last Admin: 05/28/20 10:54 Dose: 100 mls/hr Documented by: MELISA Ibuprofen (Motrin) 400 mg PO Q4H PRN PRN Reason: Pain Last Admin: 05/26/20 03:45 Dose: 400 mg Documented by: LEONEL Metoclopramide HCl (Reglan) 10 mg IVPUSH Q6H PRN PRN Reason: Nausea Last Admin: 05/28/20 03:41 Dose: 10 mg Documented by: Admin: 05/27/20 18:38 Dose: 10 mg Documented by: ALPHONSO Metoprolol Tartrate (Lopressor) 5 mg IVPUSH Q6H PRN PRN Reason: Hypertension Multivitamins/Minerals/Vitamin C (Tab-A-Naya) 1 tab PO DAILY [facility] Last Admin: 05/28/20 09:33 Dose: 1 tab Documented by: JOANIE Cosigned by: WILLIAMS Admin: 05/27/20 08:54 Dose: 1 tab Documented by: Admin: 05/26/20 10:06 Dose: 1 tab Documented by: CLIVE Cosigned by: MICHAEL Admin: 05/25/20 10:18 Dose: 1 tab Documented by: TRAY Ondansetron HCl (Zofran) 4 mg IVPUSH Q4H PRN PRN Reason: Nausea Last Admin: 05/27/20 21:18 Dose: 4 mg Documented by: Admin: 05/27/20 08:49 Dose: 4 mg Documented by: Admin: 05/26/20 21:03 Dose: 4 mg Documented by: Admin: 05/26/20 16:46 Dose: 4 mg Documented by: Admin: 05/26/20 08:45 Dose: 4 mg Documented by: Admin: 05/26/20 03:41 Dose: 4 mg Documented by: Admin: 05/25/20 19:45 Dose: 4 mg Documented by: Admin: 05/25/20 08:11 Dose: 4 mg Documented by: Admin: 05/25/20 03:53 Dose: 4 mg Documented by: Admin: 05/24/20 08:05 Dose: 4 mg Documented by: Admin: 05/24/20 04:37 Dose: 4 mg Documented by: PAULO Oxycodone/Acetaminophen (Percocet 325-5 Mg) 2 tab PO Q4H PRN PRN Reason: Pain (severe 7-10) Last Admin: 05/28/20 03:31 Dose: 2 tab Documented by: Admin: 05/27/20 18:37 Dose: 2 tab Documented by: Admin: 05/27/20 08:53 Dose: 2 tab Documented by: Admin: 05/25/20 19:37 Dose: 2 tab Documented by: Admin: 05/25/20 14:14 Dose: 2 tab Documented by: TRAY Pantoprazole Sodium (Protonix) 40 mg PO DAILY [facility] Last Admin: 05/28/20 09:33 Dose: 40 mg Documented by: JOANIE Cosigned by: WILLIAMS Admin: 05/27/20 14:01 Dose: 40 mg Documented by: ALPHONSO Scopolamine (Transderm-Scop) 1.5 mg TRDERM Q72H PRN PRN Reason: Nausea Senna (Senna) 8.6 mg PO DAILY [facility] Last Admin: 05/28/20 09:33 Dose: 8.6 mg Documented by: JOANIE Cosigned by: WILLIAMS Admin: 05/27/20 09:55 Dose: 8.6 mg Documented by: ALPHONSO Sodium Chloride (Saline Flush) 10 ml FLUSH ASDIRECTED PRN PRN Reason: Keep Vein Open Sodium Chloride (Saline Flush) 2.5 ml FLUSH ASDIRECTED PRN PRN Reason: Keep Vein Open Sodium Chloride (Normal Saline) 10 ml IV ASDIRECTED PRN PRN Reason: IV Use - Plan Plan (Free Text/Narrative):: Patient had no acute events yesterday. She did not pass flatus or have a BM. I offered a suppository today. She did have a small BM after this but still feels mildly bloated. No nausea or vomiting today. No headache. Overall she looks and feels slightly better. Pain: No changes in pain regiment today. CV: Mildly hypertensive. Still on home BP medications. PRN metoprolol if she becomes more hypertensive. Pulm: Sats in low 90s on room air. Continues to ambulate and use IS. GI: Will attempt to advance diet to clears today but if she becomes more distended or nauseated will go back to NPO. I switched her to D5 NS with KCl @ 100ml/hr. Ok to stop if taking adequate po. Continue daily senna, colace. Patient has great bowel sounds and will hopefully regain more bowel function here in the next day or so. Renal: UOP adequate. BUN/Cr WNL. Magnesium replaced today. Potassium replaced through IVF. ID: WBC Still decreasing. 12K today. No signs of infection at this time. Continue IV zosyn until WBC is WNL. Heme: Slightly decreased today, likely due to increased IVF yesterday. Continue to monitor. PX: GI px with PPI and DVT Px with heparin and SCDs
[2020-05-28] MEDS: Polyethylene Glycol 3350 Powder 17 GM Packet PO SCH (14:27)
[2020-05-29] MEDS: Piperacillin/Tazobactam 3.375 GM in Sodium Chloride 0.9% 50 ML IV SCH ×2 (02:19→08:28)
[2020-05-29] MEDS: Dextrose 5%-0.9% NaCl with KCl 1,000 ML IV SCH ×2 (02:21→15:28)
[2020-05-29 06:26] LABS: BLOOD UREA NITROGEN,BUN 4 mg/dL (7.0-18.0); CARBON DIOXIDE,CO2 27.4 mmol/L (21.0-32.0); CHLORIDE,CL 100 mmol/L (98-107); GLUCOSE RANDOM 146 mg/dL (74-106); POTASSIUM,K 3.4 mmol/L (3.5-5.1); SODIUM,NA 138 mmol/L (136-145)
[2020-05-29] MEDS: Polyethylene Glycol 3350 Powder 17 GM Packet PO SCH (08:29)
[2020-05-29] MEDS: Multivitamin Tab PO SCH (08:29)
[2020-05-29] MEDS: Lisinopril/Hydrochlorothiazide 10-12.5 MG Tab PO SCH (08:29)
[2020-05-29] MEDS: Pantoprazole 40 MG Tab.CR PO SCH (08:29)
[2020-05-29] MEDS: Docusate Sodium 100 MG Cap PO SCH ×2 (08:29→20:44)
[2020-05-29] MEDS: Sennosides 8.6 MG Tab PO SCH (08:29)
--- NOTE | 2020-05-29 10:11 | PCM.SURGPN ---
- General Info Date of Service: 05/29/20 Date of Surgery/Procedure: 05/24/20 POD#: 5 Functional Status: Reports: Pain Controlled, Tolerating Diet, Ambulating, Urinating. Denies: New Symptoms - Review of Systems General: Reports: No Symptoms HEENT: Reports: No Symptoms Pulmonary: Reports: No Symptoms Cardiovascular: Reports: No Symptoms Gastrointestinal: Reports: Decreased Appetite, Diarrhea Genitourinary: Reports: No Symptoms Musculoskeletal: Reports: No Symptoms Skin: Reports: No Symptoms - Patient Data Vitals - Most Recent: Last Vital Signs Temp 36.2 C 05/29/20 04:00 Pulse 71 05/29/20 04:00 Resp 16 05/29/20 04:00 BP 158/76 H 05/29/20 04:00 Pulse Ox 92 L 05/29/20 04:00 Weight - Most Recent: 62.596 kg I&O - Last 24 Hours: Intake & Output 05/28/20 05/29/20 05/29/20 22:59 06:59 14:59 Intake Total 1018 1900 Output Total 690 Balance 1018 1210 Lab Results Last 24 Hrs: Laboratory Results - last 24 hr 05/29/20 05/29/20 Range/Units 05:42 05:42 WBC 13.02 H (4.0-11.0) K/uL RBC 3.72 L (4.30-5.90) M/uL Hgb 12.4 (12.0-16.0) g/dL Hct 36.6 (36.0-46.0) % MCV 98.4 H (80.0-98.0) fL MCH 33.3 H (27.0-32.0) pg MCHC 33.9 (31.0-37.0) g/dL RDW Std Deviation 46.5 (28.0-62.0) fl RDW Coeff of Daniela 13 (11.0-15.0) % Plt Count 309 (150-400) K/uL MPV 9.90 (7.40-12.00) fL Nucleated RBC % 0.0 /100WBC Nucleated RBCs # 0 K/uL Sodium 138 (136-145) mmol/L Potassium 3.4 L (3.5-5.1) mmol/L Chloride 100 (98-107) mmol/L Carbon Dioxide 27.4 (21.0-32.0) mmol/L BUN 4 L (7.0-18.0) mg/dL Creatinine 0.8 (0.6-1.0) mg/dL Est Cr Clr Drug Dosing 67.29 mL/min Estimated GFR (MDRD) > 60.0 ml/min Glucose 146 H (74-106) mg/dL Calcium 8.7 (8.5-10.1) mg/dL Phosphorus 3.3 (2.6-4.7) mg/dL Magnesium 1.8 (1.8-2.4) mg/dL Med Orders - Current: Current Medications Ciprofloxacin (Ciprofloxacin Hcl) 500 mg PO BID [facility] Diphenhydramine HCl (Benadryl) 50 mg IVPUSH Q4H PRN PRN Reason: Itching Docusate Sodium (Colace) 100 mg PO BID [facility] Last Admin: 05/29/20 08:29 Dose: 100 mg Documented by: Lisinopril/HCTZ (Lisinopril-Hctz 10-12.5 Mg) 1 tab PO DAILY [facility] Last Admin: 05/29/20 08:29 Dose: 1 tab Documented by: Heparin Sodium (Porcine) (Heparin Sodium) 5,000 units SUBCUT Q12H [facility] Last Admin: 05/28/20 20:54 Dose: 5,000 units Documented by: Hydromorphone HCl (Dilaudid) 0.5 mg IVPUSH Q1H PRN PRN Reason: Pain (severe 7-10) Last Admin: 05/27/20 21:16 Dose: 0.5 mg Documented by: Potassium Chloride/Dextrose/Sod Cl (D5 Ns With 20 Meq Kcl) 1,000 mls @ 100 mls/hr IV Q10H [facility] Last Admin: 05/29/20 02:21 Dose: 100 mls/hr Documented by: Ibuprofen (Motrin) 400 mg PO Q4H PRN PRN Reason: Pain Last Admin: 05/26/20 03:45 Dose: 400 mg Documented by: Metoclopramide HCl (Reglan) 10 mg IVPUSH Q6H PRN PRN Reason: Nausea Last Admin: 05/28/20 03:41 Dose: 10 mg Documented by: Metoprolol Tartrate (Lopressor) 5 mg IVPUSH Q6H PRN PRN Reason: Hypertension Metronidazole (Metronidazole) 250 mg PO Q6H [facility] Multivitamins/Minerals/Vitamin C (Tab-A-Naya) 1 tab PO DAILY [facility] Last Admin: 05/29/20 08:29 Dose: 1 tab Documented by: Ondansetron HCl (Zofran) 4 mg IVPUSH Q4H PRN PRN Reason: Nausea Last Admin: 05/28/20 20:55 Dose: 4 mg Documented by: Oxycodone/Acetaminophen (Percocet 325-5 Mg) 2 tab PO Q4H PRN PRN Reason: Pain (severe 7-10) Last Admin: 05/28/20 20:54 Dose: 2 tab Documented by: Pantoprazole Sodium (Protonix) 40 mg PO DAILY [facility] Last Admin: 05/29/20 08:29 Dose: 40 mg Documented by: Scopolamine (Transderm-Scop) 1.5 mg TRDERM Q72H PRN PRN Reason: Nausea Senna (Senna) 8.6 mg PO DAILY [facility] Last Admin: 05/29/20 08:29 Dose: 8.6 mg Documented by: Sodium Chloride (Saline Flush) 10 ml FLUSH ASDIRECTED PRN PRN Reason: Keep Vein Open Sodium Chloride (Saline Flush) 2.5 ml FLUSH ASDIRECTED PRN PRN Reason: Keep Vein Open Sodium Chloride (Normal Saline) 10 ml IV ASDIRECTED PRN PRN Reason: IV Use Discontinued Medications Acetaminophen (Tylenol) 650 mg RECTAL Q4H PRN PRN Reason: Fever Bisacodyl (Dulcolax) 10 mg RECTAL ONETIME ONE Stop: 05/28/20 10:20 Last Admin: 05/28/20 10:39 Dose: 10 mg Documented by: Bupivacaine HCl (Marcaine 0.5%) Confirm Administered Dose 30 ml .ROUTE .STK-MED ONE Stop: 05/24/20 14:42 Cefazolin Sodium (Ancef) Confirm Administered Dose 2 gm .ROUTE .STK-MED ONE Stop: 05/24/20 11:26 Cefazolin Sodium (Ancef) Confirm Administered Dose 1 gm .ROUTE .STK-MED ONE Stop: 05/24/20 16:15 Fentanyl (Sublimaze) Confirm Administered Dose 100 mcg .ROUTE .STK-MED ONE Stop: 05/24/20 11:28 Fentanyl (Sublimaze) Confirm Administered Dose 100 mcg .ROUTE .STK-MED ONE Stop: 05/24/20 15:48 Hydromorphone HCl (Dilaudid) 0.5 mg IVPUSH Q1H PRN PRN Reason: Pain Last Admin: 05/24/20 11:34 Dose: 0.5 mg Documented by: Hydromorphone HCl (Dilaudid) Confirm Administered Dose 2 mg .ROUTE .STK-MED ONE Stop: 05/24/20 11:28 Hydromorphone HCl (Dilaudid) 0.5 mg IVPUSH Q1H PRN PRN Reason: Pain (severe 7-10) Lactated Ringer's (Ringers, Lactated) 1,000 mls @ 125 mls/hr IV ASDIRECTED [facility] Last Admin: 05/26/20 08:22 Dose: 125 mls/hr Documented by: Piperacillin Sod/Tazobactam (Sod 3.375 gm/ Sodium Chloride) 50 mls @ 100 mls/hr IV Q6H [facility] Stop: 05/26/20 06:00 Last Admin: 05/26/20 06:27 Dose: 100 mls/hr Documented by: Sodium Chloride (Normal Saline) Confirm Administered Dose 20 mls @ as directed .ROUTE .STK-MED ONE Stop: 05/24/20 11:31 Acetaminophen (Ofirmev) Confirm Administered Dose 100 mls @ as directed .ROUTE .STK-MED ONE Stop: 05/24/20 15:46 Cefoxitin Sodium 2 gm/ Sodium (Chloride) 50 mls @ 100 mls/hr IV ONETIME ONE Stop: 05/24/20 17:03 Last Admin: 05/24/20 19:59 Dose: Not Given Documented by: Cefoxitin Sodium 2 gm/ Premix 50 mls @ 100 mls/hr IV ONETIME ONE Stop: 05/24/20 17:14 Last Admin: 05/24/20 18:47 Dose: Not Given Documented by: Acetaminophen 650 mg/ Premix 65 mls @ 400 mls/hr IV Q4H PRN PRN Reason: Pain Magnesium Sulfate 4 gm/ Premix 100 mls @ 50 mls/hr IV ONETIME ONE Stop: 05/26/20 11:53 Last Admin: 05/26/20 11:17 Dose: 50 mls/hr Documented by: Piperacillin Sod/Tazobactam (Sod 3.375 gm/ Sodium Chloride) 50 mls @ 100 mls/hr IV Q6H [facility] Last Admin: 05/29/20 08:28 Dose: 100 mls/hr Documented by: Lactated Ringer's (Ringers, Lactated) 1,000 mls @ 125 mls/hr IV ASDIRECTED [facility] Last Admin: 05/28/20 03:34 Dose: 125 mls/hr Documented by: Magnesium Sulfate 2 gm/ Premix 50 mls @ 50 mls/hr IV ONETIME ONE Stop: 05/28/20 11:14 Last Admin: 05/28/20 10:57 Dose: 50 mls/hr Documented by: Ketorolac Tromethamine (Toradol) 15 mg IVPUSH Q6H [facility] Stop: 05/25/20 11:31 Last Admin: 05/25/20 12:00 Dose: 15 mg Documented by: Ketorolac Tromethamine (Toradol) Confirm Administered Dose 30 mg .ROUTE .STK-MED ONE Stop: 05/24/20 18:13 Last Admin: 05/24/20 18:46 Dose: Not Given Documented by: Lidocaine (Xylocaine-Mpf 2%) Confirm Administered Dose 5 ml .ROUTE .STK-MED ONE Stop: 05/24/20 11:30 Metoclopramide HCl (Reglan) 10 mg IVPUSH Q6H [facility] Last Admin: 05/27/20 11:28 Dose: Not Given Documented by: Midazolam HCl (Versed 1 Mg/Ml) Confirm Administered Dose 2 mg .ROUTE .STK-MED ONE Stop: 05/24/20 11:28 Ondansetron HCl (Zofran) Confirm Administered Dose 4 mg .ROUTE .STK-MED ONE Stop: 05/24/20 11:28 Polyethylene Glycol (Miralax) 17 gm PO DAILY [facility] Last Admin: 05/29/20 08:29 Dose: 17 gm Documented by: Potassium Chloride (Klor-Con M20) 20 meq PO ONETIME ONE Stop: 05/26/20 08:50 Last Admin: 05/26/20 10:06 Dose: 20 meq Documented by: Potassium Chloride (Klor-Con M20) 20 meq PO BID [facility] Stop: 05/28/20 12:16 Last Admin: 05/28/20 09:33 Dose: 20 meq Documented by: Propofol (Diprivan 20 Ml) Confirm Administered Dose 200 mg .ROUTE .STK-MED ONE Stop: 05/24/20 11:28 Rocuronium [place] (Rocuronium [place]) Confirm Administered Dose 50 mg .ROUTE .STK-MED ONE Stop: 05/24/20 11:28 Rocuronium [place] (Rocuronium [place]) Confirm Administered Dose 50 mg .ROUTE .STK-MED ONE Stop: 05/24/20 16:36 Sodium Phosphate (Neutra-Phos) 250 mg PO ONETIME ONE Stop: 05/26/20 09:55 Last Admin: 05/26/20 10:16 Dose: 250 mg Documented by: Sugammadex Sodium (Bridion) Confirm Administered Dose 200 mg .ROUTE .STK-MED ONE Stop: 05/24/20 08:40 - Exam Wound/Incisions: Healing Well General: Alert, Oriented Lungs: Clear to Auscultation, Normal Respiratory Effort Cardiovascular: Regular Rate, Regular Rhythm GI/Abdominal Exam: Normal Bowel Sounds, Soft, Non-Tender, Other (less distended ) Skin: Warm, Dry, Intact Sepsis Event Note - Evaluation Sepsis Screening Result: No Definite Risk - Focused Exam Vital Signs: Vital Signs Temp Pulse Resp BP Pulse Ox 05/29/20 04:00 36.2 C 71 16 158/76 H 92 L 05/28/20 23:49 36.3 C 66 16 147/70 H 92 L - Problem List & Annotations (1) Appendicitis SNOMED Code(s): 71638067 Code(s): K37 - UNSPECIFIED APPENDICITIS Status: Acute Current Visit: Yes Qualifiers: Appendicitis type: acute appendicitis Acute appendicitis type: with generalized peritonitis Appendicitis gangrene presence: with gangrene Appendicitis perforation presence: with perforation Appendicitis abscess presence: with abscess Qualified Code(s): K35.21 - Acute appendicitis with generalized peritonitis, with abscess (2) Postoperative ileus SNOMED Code(s): 528276137 Code(s): K91.89 - OTH POSTPROCEDURAL COMPLICATIONS AND DISORDERS OF DGSTV SYS; K56.7 - ILEUS, UNSPECIFIED Status: Acute Current Visit: Yes - Problem List Review Problem List Initiated/Reviewed/Updated: Yes - My Orders Last 24 Hours: Active Orders 24 hr Category Date Time Status Regular Diet [DIET] Diet 05/29/20 Lunch Ordered Abdomen 1V Upright [CR] Stat Exams 05/29/20 08:14 Taken Ciprofloxacin [Ciprofloxacin HCl] Med 05/29/20 10:15 Ordered 500 mg PO BID Dextrose 5%-0.9% NaCl with KCl [D5 NS with 20 mEq KCl] Med 05/28/20 10:30 Active 1,000 ml IV Q10H metroNIDAZOLE Med 05/29/20 10:15 Ordered 250 mg PO Q6H Medication Orders Ciprofloxacin (Ciprofloxacin Hcl) 500 mg PO BID [facility] Diphenhydramine HCl (Benadryl) 50 mg IVPUSH Q4H PRN PRN Reason: Itching Docusate Sodium (Colace) 100 mg PO BID [facility] Admin: 05/29/20 08:29 Dose: 100 mg Documented by: Admin: 05/28/20 20:54 Dose: 100 mg Documented by: Admin: 05/28/20 09:33 Dose: 100 mg Documented by: JOANIE Cosigned by: WILLIAMS Admin: 05/27/20 20:58 Dose: 100 mg Documented by: Admin: 05/27/20 08:54 Dose: 100 mg Documented by: Admin: 05/26/20 21:03 Dose: 100 mg Documented by: Admin: 05/26/20 10:06 Dose: 100 mg Documented by: CLIVE Cosigned by: MICHAEL Admin: 05/25/20 21:32 Dose: 100 mg Documented by: Admin: 05/25/20 10:18 Dose: 100 mg Documented by: TRAY Lisinopril/HCTZ (Lisinopril-Hctz 10-12.5 Mg) 1 tab PO DAILY [facility] Admin: 05/29/20 08:29 Dose: 1 tab Documented by: Admin: 05/28/20 09:33 Dose: 1 tab Documented by: JOANIE Cosigned by: WILLIAMS Admin: 05/27/20 08:54 Dose: 1 tab Documented by: Admin: 05/26/20 10:07 Dose: 1 tab Documented by: CLIVE Cosigned by: MICHAEL Admin: 05/25/20 10:27 Dose: 1 tab Documented by: TRAY Heparin Sodium (Porcine) (Heparin Sodium) 5,000 units SUBCUT Q12H [facility] Admin: 05/28/20 20:54 Dose: 5,000 units Documented by: Admin: 05/28/20 09:35 Dose: 5,000 units Documented by: JOANIE Cosigned by: WILLIAMS Admin: 05/27/20 20:58 Dose: 5,000 units Documented by: Admin: 05/27/20 08:57 Dose: 5,000 units Documented by: Admin: 05/26/20 21:15 Dose: 5,000 units Documented by: Admin: 05/26/20 10:07 Dose: 5,000 units Documented by: CLIVE Cosigned by: MICHAEL Admin: 05/25/20 21:33 Dose: 5,000 units Documented by: Admin: 05/25/20 10:19 Dose: 5,000 units Documented by: TARY Hydromorphone HCl (Dilaudid) 0.5 mg IVPUSH Q1H PRN PRN Reason: Pain (severe 7-10) Last Admin: 05/27/20 21:16 Dose: 0.5 mg Documented by: Admin: 05/26/20 21:10 Dose: 0.5 mg Documented by: Admin: 05/26/20 16:46 Dose: 0.5 mg Documented by: Admin: 05/26/20 08:41 Dose: 0.5 mg Documented by: Admin: 05/25/20 08:10 Dose: 0.5 mg Documented by: Admin: 05/25/20 03:47 Dose: 0.5 mg Documented by: Admin: 05/24/20 21:40 Dose: 0.5 mg Documented by: PROFLUC Potassium Chloride/Dextrose/Sod Cl (D5 Ns With 20 Meq Kcl) 1,000 mls @ 100 mls/hr IV Q10H [facility] Last Admin: 05/29/20 02:21 Dose: 100 mls/hr Documented by: Infusion: 05/28/20 20:54 Dose: 100 mls/hr Documented by: Admin: 05/28/20 10:54 Dose: 100 mls/hr Documented by: MELISA Ibuprofen (Motrin) 400 mg PO Q4H PRN PRN Reason: Pain Last Admin: 05/26/20 03:45 Dose: 400 mg Documented by: LEONEL Metoclopramide HCl (Reglan) 10 mg IVPUSH Q6H PRN PRN Reason: Nausea Last Admin: 05/28/20 03:41 Dose: 10 mg Documented by: Admin: 05/27/20 18:38 Dose: 10 mg Documented by: ALPHONSO Metoprolol Tartrate (Lopressor) 5 mg IVPUSH Q6H PRN PRN Reason: Hypertension Metronidazole (Metronidazole) 250 mg PO Q6H [facility] Multivitamins/Minerals/Vitamin C (Tab-A-Naya) 1 tab PO DAILY [facility] Last Admin: 05/29/20 08:29 Dose: 1 tab Documented by: Admin: 05/28/20 09:33 Dose: 1 tab Documented by: JOANIE Cosigned by: WILLIAMS Admin: 05/27/20 08:54 Dose: 1 tab Documented by: Admin: 05/26/20 10:06 Dose: 1 tab Documented by: CLIVE Cosigned by: MICHAEL Admin: 05/25/20 10:18 Dose: 1 tab Documented by: TRAY Ondansetron HCl (Zofran) 4 mg IVPUSH Q4H PRN PRN Reason: Nausea Last Admin: 05/28/20 20:55 Dose: 4 mg Documented by: Admin: 05/28/20 13:32 Dose: 4 mg Documented by: Admin: 05/27/20 21:18 Dose: 4 mg Documented by: Admin: 05/27/20 08:49 Dose: 4 mg Documented by: Admin: 05/26/20 21:03 Dose: 4 mg Documented by: Admin: 05/26/20 16:46 Dose: 4 mg Documented by: Admin: 05/26/20 08:45 Dose: 4 mg Documented by: Admin: 05/26/20 03:41 Dose: 4 mg Documented by: Admin: 05/25/20 19:45 Dose: 4 mg Documented by: Admin: 05/25/20 08:11 Dose: 4 mg Documented by: Admin: 05/25/20 03:53 Dose: 4 mg Documented by: Admin: 05/24/20 08:05 Dose: 4 mg Documented by: Admin: 05/24/20 04:37 Dose: 4 mg Documented by: PAULO Oxycodone/Acetaminophen (Percocet 325-5 Mg) 2 tab PO Q4H PRN PRN Reason: Pain (severe 7-10) Last Admin: 05/28/20 20:54 Dose: 2 tab Documented by: Admin: 05/28/20 13:32 Dose: 2 tab Documented by: Admin: 05/28/20 03:31 Dose: 2 tab Documented by: Admin: 05/27/20 18:37 Dose: 2 tab Documented by: Admin: 05/27/20 08:53 Dose: 2 tab Documented by: Admin: 05/25/20 19:37 Dose: 2 tab Documented by: Admin: 05/25/20 14:14 Dose: 2 tab Documented by: TRAY Pantoprazole Sodium (Protonix) 40 mg PO DAILY [facility] Last Admin: 05/29/20 08:29 Dose: 40 mg Documented by: Admin: 05/28/20 09:33 Dose: 40 mg Documented by: JOANIE Cosigned by: WILLIAMS Admin: 05/27/20 14:01 Dose: 40 mg Documented by: ALPHONSO Scopolamine (Transderm-Scop) 1.5 mg TRDERM Q72H PRN PRN Reason: Nausea Senna (Senna) 8.6 mg PO DAILY [facility] Last Admin: 05/29/20 08:29 Dose: 8.6 mg Documented by: Admin: 05/28/20 09:33 Dose: 8.6 mg Documented by: JOANIE Cosigned by: WILLIAMS Admin: 05/27/20 09:55 Dose: 8.6 mg Documented by: ALPHONSO Sodium Chloride (Saline Flush) 10 ml FLUSH ASDIRECTED PRN PRN Reason: Keep Vein Open Sodium Chloride (Saline Flush) 2.5 ml FLUSH ASDIRECTED PRN PRN Reason: Keep Vein Open Sodium Chloride (Normal Saline) 10 ml IV ASDIRECTED PRN PRN Reason: IV Use - Plan Plan (Free Text/Narrative):: Patient is looking much better this morning. She is now having bowel movements. Her vital signs are stable. Her white count is 13,000 but she has no signs of infection. Will switch from IV Zosyn to oral antibiotics today. Will advance her diet to regular. Will discontinue IV fluids. If patient is tolerating a regular diet and her oral antibiotics by the end of the day will discharge home.
[2020-05-29] MEDS: Heparin Sodium 5,000 Units/ML Vial SUBCUT SCH ×2 (10:21→22:38)
--- NOTE | 2020-05-29 11:01 | CR ---
Abdomen: Portable upright view of the abdomen was obtained. Comparison: Prior abdominal x-ray of 05/27/20. Continuing gas within small bowel loops which are mildly prominent. Findings are felt compatible with continuing distal partial small bowel obstruction or persisting ileus. No additional bowel abnormality is seen. No free air is identified. Bony structures are unremarkable for the patient's age. Impression: 1. Continuing gas dilated small bowel. No significant change from previous study is seen. Diagnostic code #2 This report was dictated in [facility]
[2020-05-29] MEDS: Ciprofloxacin 500 MG Tab PO SCH ×2 (11:13→20:44)
[2020-05-29] MEDS: metroNIDAZOLE 250 MG Tab PO SCH ×3 (11:13→22:39)
[2020-05-29] MEDS: Acetaminophen/oxyCODONE 325-5 MG Tab PO PRN (21:01)
[2020-05-29] MEDS: Ondansetron 4 MG/2 ML SDV IVPUSH PRN (21:02)
[2020-05-30] MEDS: Dextrose 5%-0.9% NaCl with KCl 1,000 ML IV SCH ×2 (01:47→05:27)
[2020-05-30] MEDS: metroNIDAZOLE 250 MG Tab PO SCH (05:24)
[2020-05-30] MEDS: Acetaminophen/oxyCODONE 325-5 MG Tab PO PRN (07:38)
--- NOTE | 2020-05-30 08:20 | PCM.DCSUM1 ---
Discharge Summary - Discharge Data Discharge Disposition: Home, Self-Care 01 Condition: Good - Referral to Home Health Primary Care Physician: PCP None - Discharge Diagnosis/Problem(s) (1) Appendicitis SNOMED Code(s): 90205760 ICD Code: K37 - UNSPECIFIED APPENDICITIS Status: Acute Current Visit: Yes Qualifiers: Appendicitis type: acute appendicitis Acute appendicitis type: with generalized peritonitis Appendicitis gangrene presence: with gangrene Appendicitis perforation presence: with perforation Appendicitis abscess presence: with abscess Qualified Code(s): K35.21 - Acute appendicitis with generalized peritonitis, with abscess (2) Postoperative ileus SNOMED Code(s): 188931423 ICD Code: K91.89 - OTH POSTPROCEDURAL COMPLICATIONS AND DISORDERS OF DGSTV SYS; K56.7 - ILEUS, UNSPECIFIED Status: Acute Current Visit: Yes - Patient Summary/Data Operative Procedure(s) Performed: Laparoscopic converted to open appendectomy - Patient Instructions Diet: Regular Diet as Tolerated, Drink 8-10+ Glasses/Day Diet, Other: Ok to have small frequent meals. Activity: No Lifting Over 20 Pounds (for six weeks after surgery ) Driving: Do Not Drive (while taking narcotics ) Showering/Bathing: May Shower, No Tub Bathing/Swimming (for one more week ) Wound/Incision Care: Keep Operative Site/Wound Site Clean and Dry (Ok to have bandage over area for drainage or comfort. Otherwise leave open to air. ) Notify Provider of: Fever, Increased Pain, Swelling and Redness, Drainage, Nausea and/or Vomiting - Discharge Plan *PRESCRIPTION DRUG MONITORING PROGRAM REVIEWED*: Yes *COPY OF PRESCRIPTION DRUG MONITORING REPORT IN PATIENT LANE: Yes Prescriptions/Med Rec: Ciprofloxacin [Ciprofloxacin HCl] 500 mg PO BID #7 tablet metroNIDAZOLE 250 mg PO Q6H #15 tablet Home Medications: Home Meds Lisinopril/Hydrochlorothiazide [Lisinopril-Hctz 20-12.5 mg Tab] 1 each PO 05/24/20 [History] Ciprofloxacin [Ciprofloxacin HCl] 500 mg PO BID #7 tablet 05/29/20 [Rx] metroNIDAZOLE 250 mg PO Q6H #15 tablet 05/29/20 [Rx] Patient Handouts: Laparoscopic Appendectomy, Adult, Care After, Appendicitis, Adult, [id number] Referrals: Linda Hernandez MD [Physician] - 06/03/20 1:45 pm (Please arrive 15 minutes endy with your insurance card, identification and your own facemask.) - Patient Data Vitals - Most Recent: Last Vital Signs Temp 36.7 C 05/30/20 05:24 Pulse 83 05/30/20 05:24 Resp 16 05/30/20 05:24 BP 156/82 H 05/30/20 05:24 Pulse Ox 94 L 05/30/20 05:24 Weight - Most Recent: 62.596 kg I&O - Last 24 hours: Intake & Output 05/29/20 05/30/20 05/30/20 22:59 06:59 14:59 Intake Total 1458 420 Output Total 500 Balance 1458 -80 RAI Results - Last 24 hrs: Microbiology 05/29/20 23:15 C. difficile Antigen & Toxins A,B - Final Stool / Feces Med Orders - Current: Current Medications Ciprofloxacin (Ciprofloxacin Hcl) 500 mg PO BID [facility] Last Admin: 05/29/20 20:44 Dose: 500 mg Documented by: Diphenhydramine HCl (Benadryl) 50 mg IVPUSH Q4H PRN PRN Reason: Itching Docusate Sodium (Colace) 100 mg PO BID [facility] Last Admin: 05/29/20 20:44 Dose: 100 mg Documented by: Lisinopril/HCTZ (Lisinopril-Hctz 10-12.5 Mg) 1 tab PO DAILY [facility] Last Admin: 05/29/20 08:29 Dose: 1 tab Documented by: Heparin Sodium (Porcine) (Heparin Sodium) 5,000 units SUBCUT Q12H [facility] Last Admin: 05/29/20 22:38 Dose: 5,000 units Documented by: Hydromorphone HCl (Dilaudid) 0.5 mg IVPUSH Q1H PRN PRN Reason: Pain (severe 7-10) Last Admin: 05/27/20 21:16 Dose: 0.5 mg Documented by: Potassium Chloride/Dextrose/Sod Cl (D5 Ns With 20 Meq Kcl) 1,000 mls @ 100 mls/hr IV Q10H [facility] Last Admin: 05/30/20 05:27 Dose: 100 mls/hr Documented by: Ibuprofen (Motrin) 400 mg PO Q4H PRN PRN Reason: Pain Last Admin: 05/26/20 03:45 Dose: 400 mg Documented by: Metoclopramide HCl (Reglan) 10 mg IVPUSH Q6H PRN PRN Reason: Nausea Last Admin: 05/28/20 03:41 Dose: 10 mg Documented by: Metoprolol Tartrate (Lopressor) 5 mg IVPUSH Q6H PRN PRN Reason: Hypertension Metronidazole (Metronidazole) 250 mg PO Q6H [facility] Last Admin: 05/30/20 05:24 Dose: 250 mg Documented by: Multivitamins/Minerals/Vitamin C (Tab-A-Naya) 1 tab PO DAILY [facility] Last Admin: 05/29/20 08:29 Dose: 1 tab Documented by: Ondansetron HCl (Zofran) 4 mg IVPUSH Q4H PRN PRN Reason: Nausea Last Admin: 05/29/20 21:02 Dose: 4 mg Documented by: Oxycodone/Acetaminophen (Percocet 325-5 Mg) 2 tab PO Q4H PRN PRN Reason: Pain (severe 7-10) Last Admin: 05/30/20 07:38 Dose: 2 tab Documented by: Pantoprazole Sodium (Protonix) 40 mg PO DAILY [facility] Last Admin: 05/29/20 08:29 Dose: 40 mg Documented by: Scopolamine (Transderm-Scop) 1.5 mg TRDERM Q72H PRN PRN Reason: Nausea Senna (Senna) 8.6 mg PO DAILY [facility] Last Admin: 05/29/20 08:29 Dose: 8.6 mg Documented by: Sodium Chloride (Saline Flush) 10 ml FLUSH ASDIRECTED PRN PRN Reason: Keep Vein Open Sodium Chloride (Saline Flush) 2.5 ml FLUSH ASDIRECTED PRN PRN Reason: Keep Vein Open Sodium Chloride (Normal Saline) 10 ml IV ASDIRECTED PRN PRN Reason: IV Use Discontinued Medications Acetaminophen (Tylenol) 650 mg RECTAL Q4H PRN PRN Reason: Fever Bisacodyl (Dulcolax) 10 mg RECTAL ONETIME ONE Stop: 05/28/20 10:20 Last Admin: 05/28/20 10:39 Dose: 10 mg Documented by: Bupivacaine HCl (Marcaine 0.5%) Confirm Administered Dose 30 ml .ROUTE .STK-MED ONE Stop: 05/24/20 14:42 Cefazolin Sodium (Ancef) Confirm Administered Dose 2 gm .ROUTE .STK-MED ONE Stop: 05/24/20 11:26 Cefazolin Sodium (Ancef) Confirm Administered Dose 1 gm .ROUTE .STK-MED ONE Stop: 05/24/20 16:15 Fentanyl (Sublimaze) Confirm Administered Dose 100 mcg .ROUTE .STK-MED ONE Stop: 05/24/20 11:28 Fentanyl (Sublimaze) Confirm Administered Dose 100 mcg .ROUTE .STK-MED ONE Stop: 05/24/20 15:48 Hydromorphone HCl (Dilaudid) 0.5 mg IVPUSH Q1H PRN PRN Reason: Pain Last Admin: 05/24/20 11:34 Dose: 0.5 mg Documented by: Hydromorphone HCl (Dilaudid) Confirm Administered Dose 2 mg .ROUTE .STK-MED ONE Stop: 05/24/20 11:28 Hydromorphone HCl (Dilaudid) 0.5 mg IVPUSH Q1H PRN PRN Reason: Pain (severe 7-10) Lactated Ringer's (Ringers, Lactated) 1,000 mls @ 125 mls/hr IV ASDIRECTED [facility] Last Admin: 05/26/20 08:22 Dose: 125 mls/hr Documented by: Piperacillin Sod/Tazobactam (Sod 3.375 gm/ Sodium Chloride) 50 mls @ 100 mls/hr IV Q6H [facility] Stop: 05/26/20 06:00 Last Admin: 05/26/20 06:27 Dose: 100 mls/hr Documented by: Sodium Chloride (Normal Saline) Confirm Administered Dose 20 mls @ as directed .ROUTE .STK-MED ONE Stop: 05/24/20 11:31 Acetaminophen (Ofirmev) Confirm Administered Dose 100 mls @ as directed .ROUTE .STK-MED ONE Stop: 05/24/20 15:46 Cefoxitin Sodium 2 gm/ Sodium (Chloride) 50 mls @ 100 mls/hr IV ONETIME ONE Stop: 05/24/20 17:03 Last Admin: 05/24/20 19:59 Dose: Not Given Documented by: Cefoxitin Sodium 2 gm/ Premix 50 mls @ 100 mls/hr IV ONETIME ONE Stop: 05/24/20 17:14 Last Admin: 05/24/20 18:47 Dose: Not Given Documented by: Acetaminophen 650 mg/ Premix 65 mls @ 400 mls/hr IV Q4H PRN PRN Reason: Pain Magnesium Sulfate 4 gm/ Premix 100 mls @ 50 mls/hr IV ONETIME ONE Stop: 05/26/20 11:53 Last Admin: 05/26/20 11:17 Dose: 50 mls/hr Documented by: Piperacillin Sod/Tazobactam (Sod 3.375 gm/ Sodium Chloride) 50 mls @ 100 mls/hr IV Q6H [facility] Last Admin: 05/29/20 08:28 Dose: 100 mls/hr Documented by: Lactated Ringer's (Ringers, Lactated) 1,000 mls @ 125 mls/hr IV ASDIRECTED [facility] Last Admin: 05/28/20 03:34 Dose: 125 mls/hr Documented by: Magnesium Sulfate 2 gm/ Premix 50 mls @ 50 mls/hr IV ONETIME ONE Stop: 05/28/20 11:14 Last Admin: 05/28/20 10:57 Dose: 50 mls/hr Documented by: Ketorolac Tromethamine (Toradol) 15 mg IVPUSH Q6H [facility] Stop: 05/25/20 11:31 Last Admin: 05/25/20 12:00 Dose: 15 mg Documented by: Ketorolac Tromethamine (Toradol) Confirm Administered Dose 30 mg .ROUTE .STK-MED ONE Stop: 05/24/20 18:13 Last Admin: 05/24/20 18:46 Dose: Not Given Documented by: Lidocaine (Xylocaine-Mpf 2%) Confirm Administered Dose 5 ml .ROUTE .STK-MED ONE Stop: 05/24/20 11:30 Metoclopramide HCl (Reglan) 10 mg IVPUSH Q6H [facility] Last Admin: 05/27/20 11:28 Dose: Not Given Documented by: Midazolam HCl (Versed 1 Mg/Ml) Confirm Administered Dose 2 mg .ROUTE .STK-MED ONE Stop: 05/24/20 11:28 Ondansetron HCl (Zofran) Confirm Administered Dose 4 mg .ROUTE .STK-MED ONE Stop: 05/24/20 11:28 Polyethylene Glycol (Miralax) 17 gm PO DAILY [facility] Last Admin: 05/29/20 08:29 Dose: 17 gm Documented by: Potassium Chloride (Klor-Con M20) 20 meq PO ONETIME ONE Stop: 05/26/20 08:50 Last Admin: 05/26/20 10:06 Dose: 20 meq Documented by: Potassium Chloride (Klor-Con M20) 20 meq PO BID [facility] Stop: 05/28/20 12:16 Last Admin: 05/28/20 09:33 Dose: 20 meq Documented by: Propofol (Diprivan 20 Ml) Confirm Administered Dose 200 mg .ROUTE .STK-MED ONE Stop: 05/24/20 11:28 Rocuronium [place] (Rocuronium [place]) Confirm Administered Dose 50 mg .ROUTE .STK-MED ONE Stop: 05/24/20 11:28 Rocuronium [place] (Rocuronium [place]) Confirm Administered Dose 50 mg .ROUTE .STK-MED ONE Stop: 05/24/20 16:36 Sodium Phosphate (Neutra-Phos) 250 mg PO ONETIME ONE Stop: 05/26/20 09:55 Last Admin: 05/26/20 10:16 Dose: 250 mg Documented by: Sugammadex Sodium (Bridion) Confirm Administered Dose 200 mg .ROUTE .STK-MED ONE Stop: 05/24/20 08:40
[2020-05-30] MEDS: Lisinopril/Hydrochlorothiazide 10-12.5 MG Tab PO SCH (09:02)
[2020-05-30] MEDS: Docusate Sodium 100 MG Cap PO SCH (09:02)
[2020-05-30] MEDS: Multivitamin Tab PO SCH (09:02)
[2020-05-30] MEDS: Sennosides 8.6 MG Tab PO SCH (09:02)
[2020-05-30] MEDS: Ciprofloxacin 500 MG Tab PO SCH (09:02)
[2020-05-30] MEDS: Pantoprazole 40 MG Tab.CR PO SCH (09:02)
[2020-05-30] MEDS: Heparin Sodium 5,000 Units/ML Vial SUBCUT SCH (09:12)
== END 2020-05-30 10:42 | disposition home or self-care (01) | DRG 233 ==
LOC: MW.MS 03:17 → OBSVTOIN 17:18 → MW.MS 18:03
PROVIDERS: ADMIT Surgery; ATTEND Surgery
PROC: 0DTJ0ZZ Resection of Appendix, Open Approach (ICD-10-PCS; principal; 2020-05-24)
PROC: 0WJG4ZZ Inspection of Peritoneal Cavity, Percutaneous Endoscopic Approach (ICD-10-PCS; 2020-05-24)
DX: K35.21 Acute appendicitis with generalized peritonitis, with abscess (principal); K56.7 Ileus, unspecified; I10 Essential (primary) hypertension; F17.210 Nicotine dependence, cigarettes, uncomplicated
CPT/HCPCS: 36415; 74018; 74018-26; 80048; 83735; 84100; 85027; 87324; 88304; A9270-GY; J0131; J0690; J0694; J1170; J1644; J1885; J2001; J2250; J2405; J2543; J2704; J2765; J3010; J3475; J3480; J3490; J7050; J7120